=== PATIENT | female | born 1945 | race Caucasian/White ===

== ENCOUNTER 2019-08-11 15:48 | Outpatient (CLI) | payer MEDICARE, MEDICAID, SELFPAY ==
[2019-08-11 17:04] LABS: Vitamin D 25 Hydroxy 14.8 ng/mL
== END 2019-08-11 15:49 | disposition home or self-care (01) ==
PROVIDERS: PCP Internal Medicine; Visit Provider Podiatrist Foot & Ankle Surgery
DX: E55.9 Vitamin D deficiency, unspecified (principal)
CPT/HCPCS: 36415; 82306

== ENCOUNTER → 2020-01-05 12:13 | Outpatient (CLI) | payer MEDICARE, MEDICAID, SELFPAY ==
--- NOTE | ~2020-01-05 | XR_ITS ---
EXAMINATION: XR knee RT min 4V DATE: 01/05/2020 14:07 INDICATION: Right knee arthritis. TECHNIQUE: 4 views of right knee were obtained. COMPARISON: Right knee radiographs 06/01/2012 FINDINGS: Bone alignment is normal. No fracture. There is mild tricompartmental osteoarthritis. No kn ee joint effusion. IMPRESSION: 1. Mild right knee osteoarthritis. Reviewed, dictated and finalized at location A.
--- NOTE | ~2020-01-05 | MR_ITS ---
EXAMINATION: MR lumbar spine wo con DATE: 01/05/2020 13:32 INDICATION: Low back pain. TECHNIQUE: Magnetic resonance imaging (MRI) of the lumbar spine was performed without intravenous con trast. Sequences included sagittal T2-weighted FSE, sagittal T2-weighted FS FSE, sagittal T1-weighted FSE, and axial T2-weighted FSE. COMPARISON: Lumbar spine MRI 12/01/2017, thoracic spine MRI 10/23/2016 FINDINGS: There is a chronic burst fracture of L2 with changes of vertebroplasty. There is 4 mm anter olisthesis of L4 on L5. There is mildly decreased disc height at L4-L5 and severely decreased disc he ight at L5-S1. The distal spinal cord signal intensity is normal. The conus medullaris is at L1-L2. 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 The following disc levels are specifically discussed: L1-L2: The disc is mildly bulging and has an annular fissure. There is mild bilateral facet joint ost eoarthritis. There is no neural foraminal stenosis. There is no central canal stenosis. L2-L3: The disc does not extend beyond the endplate margin. There is mild bilateral facet joint osteo arthritis. There is no neural foraminal stenosis. There is no central canal stenosis. L3-L4: The disc is bulging and has an annular fissure. There is mild bilateral facet joint osteoarthr itis. There is hypertrophy of the ligamentum flavum. There is mild neural foraminal stenosis. There i s mild central canal stenosis. L4-L5: The disc is bulging and has an annular fissure. There is severe bilateral facet joint osteoart hritis. There is hypertrophy of the ligamentum flavum. There is mild bilateral neural foraminal steno sis. There is severe central canal stenosis. L5-S1: The disc is bulging and has an annular fissure. There is severe bilateral facet joint osteoart hritis. There is moderate right and mild left neural foraminal stenosis. There is mild central canal stenosis. IMPRESSION: 1. Severe lower lumbar spondylosis. Reviewed, dictated and finalized at location A.
--- NOTE | ~2020-01-05 | MR_ITS ---
EXAMINATION: MR cervical spine wo con EXAM DATE: 01/05/2020 13:12 INDICATION: Cervical pain. TECHNIQUE: Multi-sequential, multiplanar MR images of the cervical spine were obtained without contra st. Axial T2, axial T2 MERGE sequence. Sagittal T1, T2, T2 fat saturation images also obtained. Com parison is made to prior examination from 10/23/2016. FINDINGS: There is mild to moderate loss of the C6-7 disc height, mild at C4-5 and 5-6. The vertebra l bodies are aligned in the AP dimension. The spinal cord signal intensity and intrinsic morphology i s normal. Cervicomedullary junction is normal in appearance. There are no suspicious marrow signal ab normalities. Paraspinal soft tissue is unremarkable. Level by level evaluation: C2-C3: Disc does not extend beyond the endplate margin. Uncovertebral joint arthropathy: None. Facet joint arthropathy: Moderate left, mild right. Neural foraminal stenosis: No stenosis. Central canal stenosis: No stenosis. C3-C4: Disc does not extend beyond the endplate margin. Uncovertebral joint arthropathy: None. Facet joint arthropathy: Moderate to severe left, mild to moderate right. Neural foraminal stenosis: Mild left. Central canal stenosis: No stenosis. C4-C5: There is a minimal diffuse disc bulge. Uncovertebral joint arthropathy: Minimal left. Facet joint arthropathy: Moderate. Neural foraminal stenosis: Mild bilateral. Central canal stenosis: No stenosis. C5-C6: There is a mild diffuse disc bulge. Uncovertebral joint arthropathy: Mild bilateral. Facet joint arthropathy: Mild to moderate bilateral. Neural foraminal stenosis: Minimal bilateral. Central canal stenosis: Mild. C6-C7: There is a mild diffuse disc bulge. Uncovertebral joint arthropathy: Mild to moderate right, mild left. Facet joint arthropathy: Mild to moderate bilateral. Neural foraminal stenosis: Mild to moderate right, mild left. Central canal stenosis: Mild. C7-T1: Disc does not extend beyond the endplate margin. Uncovertebral joint arthropathy: None. Facet joint arthropathy: Moderate. Neural foraminal stenosis: No stenosis. Central canal stenosis: No stenosis. Compared to 2017, probable slight interval progression. IMPRESSION: 1. Overall moderate cervical facet arthropathy, mild to moderate disc disease. Reviewed, dictated and finalized at location A.
== END ==
DX: M17.10 Unilateral primary osteoarthritis, unspecified knee (principal); M47.896 Other spondylosis, lumbar region; M50.30 Other cervical disc degeneration, unspecified cervical region
CPT/HCPCS: 72141; 72148; 73564

== ENCOUNTER → 2020-01-10 13:26 | Outpatient (CLI) | payer MEDICARE, MEDICAID, SELFPAY ==
--- NOTE | ~2020-01-10 | XR_ITS ---
XR thoracic spine 3V 01/10/2020 13:55 Indication: Thoracic back pain Procedure: 3 views thoracic spine Comparison: 07/30/2016 Findings: There is mild dextrocurvature of the thoracic spine. There is a chronic compression deformi ty of the upper lumbar spine with vertebroplasty changes. There is chronic mild vertebral body height loss at T3-T11. No paraspinal soft tissue abnormality. There are calcified granulomas in the left arun ng. There is diffuse idiopathic skeletal hyperostosis (DISH) of the thoracic spine. Impression: 1: Mild thoracic spondylosis. No significant change. Reviewed, dictated and finalized at location A. Impression: 1: Mild thoracic spondylosis. No significant change.
== END ==
PROVIDERS: PCP Internal Medicine; Visit Provider Pain Medicine Pain Medicine
DX: M47.894 Other spondylosis, thoracic region (principal)
CPT/HCPCS: 72072

== ENCOUNTER → 2020-01-10 13:32 | Outpatient (CLI) | payer MEDICARE, MEDICAID, SELFPAY ==
--- NOTE | ~2020-01-10 | XR_ITS ---
EXAMINATION: XR chest 2V EXAM DATE: 01/10/2020 13:55 INDICATION: Cough. Shortness of breath, symptoms 6 months. TECHNIQUE: Frontal and lateral projections of the chest obtained and reviewed. Comparison is made to prior examination from 07/26/2018. FINDINGS: The lungs are clear. There are no pleural effusions. The cardiomediastinal silhouette is within normal limits. There is no pneumothorax suspected. Patient has diffuse idiopathic skeletal h yperostosis (DISH). IMPRESSION: No acute cardiopulmonary findings. Reviewed, dictated and finalized at location A.
== END ==
PROVIDERS: PCP Internal Medicine; Visit Provider Internal Medicine
DX: R05 Cough (principal)
CPT/HCPCS: 71046

== ENCOUNTER 2020-01-21 08:10 | Outpatient (CLI) | payer MEDICARE, MEDICAID, SELFPAY ==
--- NOTE | ~2020-01-21 | CT_ITS ---
EXAMINATION: CT brain wo con DATE: 01/21/2020 08:55 INDICATION: Head injury TECHNIQUE: Computed tomography (CT) of the head was performed without intravenous contrast. Sagittal and coronal reconstructions were performed. The mA was adjusted according to patient size. Iterative reconstruction technique was employed. The dose-length product was 605.33 mGy-cm. COMPARISON: Sinus CT dated 02/23/2012 FINDINGS: No acute intracranial hemorrhage, acute infarction or abnormal extra axial fluid collection. There is mild scattered white matter hypoattenuation consistent with chronic small vessel ischemic disease. Symmetric prominence of the sulci consistent with mild age-appropriate diffuse cerebral volume loss. Ventricles are normal and symmetric. No mass/mass effect. Changes of bilateral intraocular lens repl acement. The orbits, paranasal sinuses and mastoid air cells are normal. Hyperostosis frontalis. No c alvarial fracture. Intracranial calcified cerebral atherosclerosis is noted. IMPRESSION: 1. No fracture or acute intracranial process. 2. Age-related changes including mild diffuse volume loss and mild scattered white matter hypoattenua tion consistent with chronic small vessel ischemic disease. Reviewed, dictated and finalized at location A. IMPRESSION: 1. No fracture or acute intracranial process. 2. Age-related changes including mild diffuse volume loss and mild scattered wh ite matter hypoattenuation consistent with chronic small vessel ischemic diseas e.
== END 2020-01-21 08:11 | disposition home or self-care (01) ==
PROVIDERS: PCP Internal Medicine; Visit Provider Nurse Practitioner
DX: S09.90XA Unspecified injury of head, initial encounter (principal)
CPT/HCPCS: 70450

== ENCOUNTER 2020-04-24 12:42 | Outpatient (CLI) | payer MEDICARE, MEDICAID, SELFPAY | END 2020-04-24 12:43 | disposition home or self-care (01) | LOC: ANHBWCAUD 12:46 | PROVIDERS: PCP Internal Medicine | DX: H90.3 Sensorineural hearing loss, bilateral (principal) | CPT/HCPCS: 92557; 92567 ==

== ENCOUNTER 2020-07-26 11:30 | Outpatient (RCR) | payer MEDICAID, SELFPAY | END 2020-08-27 23:59 | disposition home or self-care (01) | LOC: ANHBWCAUD 11:30 | PROVIDERS: PCP Internal Medicine; Visit Provider Internal Medicine | DX: Z46.1 Encounter for fitting and adjustment of hearing aid (principal) | CPT/HCPCS: 99199; V5160; V5261 ==

== ENCOUNTER → 2020-08-04 08:52 | Outpatient (CLI) | payer MEDICARE, MEDICAID, SELFPAY ==
--- NOTE | ~2020-08-04 | XR_ITS ---
EXAMINATION: XR hand BI arthritis min 3V EXAM DATE: 08/04/2020 11:50 INDICATION: M19.90 - Unspecified osteoarthritis, unspecified site. Multi joint pain. TECHNIQUE: Right hand frontal, lateral and oblique projections obtained and reviewed. Left hand fron jonas, lateral and oblique projections obtained and reviewed. Catchers projection of both hands. Compar sona is made to prior examination from 06/17/2018. FINDINGS: There is mild symmetric bilateral polyarticular primary osteoarthritis without any erosive change. There are no acute fractures or dislocations identified. There is no subcutaneous gas. The soft tissue is unremarkable. There are no radiopaque foreign bodies. IMPRESSION: Mild symmetric bilateral polyarticular osteoarthritis. Reviewed, dictated and finalized at location A. ER MACHINIST
--- NOTE | ~2020-08-04 | XR_ITS ---
EXAMINATION: XR hip BI 2V w AP pelvis EXAM DATE: 08/04/2020 11:50 INDICATION: M35.00 - Sicca syndrome, unspecified . Multi joint pain. TECHNIQUE: Each hip imaged independently (separate right and also left hip) 'frog leg' and frontal p rojections for interpretation. Frontal projection pelvis. Comparison is made to prior examination fr om 12/09/2018. FINDINGS: No radiographic evidence of hip avascular necrosis. There is mild to moderate symmetric bi lateral hip primary osteoarthritis. There are no acute fractures or dislocations identified. There i s no subcutaneous gas. The soft tissue is unremarkable. Abdominal wall mesh anchors. IMPRESSION: Mild to moderate bilateral hip osteoarthritis. Reviewed, dictated and finalized at location A. OM SPRAYER
--- NOTE | ~2020-08-04 | XR_ITS ---
EXAMINATION: XR foot LT standing 2V EXAM DATE: 08/04/2020 11:50 INDICATION: M35.00 - Sicca syndrome, unspecified. Multi joint pain. TECHNIQUE: Frontal and lateral standing projections of the left foot. There is no prior study for c omparison. FINDINGS: There is moderate left 1st metatarsophalangeal joint primary osteoarthritis. There are n o bony erosions identified. There are no acute fractures or dislocations identified. There is no sub cutaneous gas. The soft tissue is unremarkable. There are no radiopaque foreign bodies. IMPRESSION: Moderate left 1st MTP osteoarthritis. Reviewed, dictated and finalized at location A. SE REFINING SUPERVISOR
--- NOTE | ~2020-08-04 | XR_ITS ---
EXAMINATION: XR foot RT standing 2V EXAM DATE: 08/04/2020 11:50 INDICATION: M35.00 - Sicca syndrome, unspecified . TECHNIQUE: Frontal and lateral standing projections of the right foot. Comparison is made to prior e xamination from 06/23/2019. FINDINGS: Previously seen right 2nd metatarsal neck fracture has healed. There is mild to moderate 1 st metatarsophalangeal joint primary osteoarthritis. There are no acute fractures or dislocations christine ntified. There is no subcutaneous gas. The soft tissue is unremarkable. 2 screws bridging healed medial malleolar fracture. There are no bony erosions identified. IMPRESSION: 1. Mild to moderate right 1st MTP osteoarthritis. 2. Other chronic, surgical findings Reviewed, dictated and finalized at location A. E CLERK
--- NOTE | ~2020-08-04 | XR_ITS ---
EXAMINATION: XR knee RT min 4V EXAM DATE: 08/04/2020 11:50 INDICATION: M35.00 - Sicca syndrome, unspecified . TECHNIQUE: Right knee frontal AP, PA, lateral, sunrise projections obtained in standing position. Co mparison is made to prior examination from 01/05/2020. FINDINGS: There is moderate to severe loss of the medial patellofemoral compartment with mild patella r lateral subluxation. No joint effusion. There is mild to moderate tibiofemoral compartment primary osteoarthritis. There are no acute fractures or dislocations identified. There is no subcutaneous ga s. The soft tissue is unremarkable. There are no radiopaque foreign bodies. Several small vascula r calcifications. IMPRESSION: 1. Right knee osteoarthritis, moderate to severe at the medial patellofemoral compartment. Reviewed, dictated and finalized at location A. AULIC SPINNER
--- NOTE | ~2020-08-04 | XR_ITS ---
EXAMINATION: XR knee LT min 4V EXAM DATE: 08/04/2020 11:50 INDICATION: M35.00 - Sicca syndrome, unspecified . Joint pain. TECHNIQUE: Left knee standing frontal AP, PA, lateral and sunrise projections. Comparison is made to prior examination from 06/01/2012. FINDINGS: There is been interval placement of total left knee arthroplasty hardware in expected posi tion. There may be a small joint effusion. There are no acute fractures identified. Some faint vascul ar calcifications. IMPRESSION: Intact left knee arthroplasty. Probable small joint effusion. Reviewed, dictated and finalized at location A. TEACHER
== END ==
PROVIDERS: PCP Internal Medicine; Visit Provider Internal Medicine
DX: M35.00 Sjogren syndrome, unspecified (principal); M17.11 Unilateral primary osteoarthritis, right knee; Z96.652 Presence of left artificial knee joint; M19.072 Primary osteoarthritis, left ankle and foot; M19.071 Primary osteoarthritis, right ankle and foot; M16.0 Bilateral primary osteoarthritis of hip; M19.042 Primary osteoarthritis, left hand; M19.041 Primary osteoarthritis, right hand
CPT/HCPCS: 73130; 73521; 73564; 73620

== ENCOUNTER 2020-08-25 17:58 | Emergency (ER) | payer MEDICARE, MEDICAID, SELFPAY ==
--- NOTE | ~2020-08-25 | XR_ITS ---
XR foot LT min 3V 08/25/2020 18:54 Indication: Stepped on nail. Evaluate for foreign body. Procedure: 4 views left foot Comparison: 08/04/2020 Findings: No radiopaque foreign body identified. Osteopenia. Moderate osteoarthritis of the first MTP joint. Lisfranc joint intact. There is a degenerative calcaneal enthesophyte. No acute fracture or t raumatic malalignment. Impression: 1: No acute bone or joint abnormality. No foreign bodies. Reviewed, dictated and finalized at location A. R TUBE MACHINE OPERATOR Impression: 1: No acute bone or joint abnormality. No foreign bodies.
[2020-08-25 18:12] VITALS: BP 152/64; PULSE 88; RESP 24; TEMP 36.9; O2SAT 97
--- NOTE | 2020-08-25 18:54 | ED.WOUNDLAC ---
HPI - Wound/Laceration General Chief Complaint: Wound/Laceration Stated Complaint: stepped on a nail Time Seen by Provider: 08/25/20 18:54 Source: patient, RN notes reviewed and old records reviewed Mode of arrival: ambulatory Limitations: no limitations History of Present Illness HPI narrative: 75 year old female who presents to express care with complaints of stepping on tack board that was lying on carpeting when she was visiting her sister 2 days ago She states that tack board has nails in it and she has puncture wounds and a lacerated area to the left forefoot. She also states that she has a splinter in her foot in the left forefoot area also that has been there for 2 weeks. Patient has superficial laceration to mid plantar forefoot, puncture pandya X2 to lateral plantar forefoot and also one puncture area to medial plantar forefoot. Also small splinter to medial forefoot. Patient states that she has been taking Tylenol for her discomfort.Tetanus is not up to date. Onset (ago): day(s) Extremity Location: Left: foot Place: other (sisters home) Patient tetanus UTD: No Context: accidental Associated symptoms: pain and suspect foreign body present Treatments prior to arrival: other (Tylenol) Related Data Home Medications Medication Instructions Recorded Confirmed clonazepam 1 mg tablet 2 mg PO DAILY tablet 04/15/19 08/25/20 nitroglycerin 0.4 mg sublingual 0.4 mg SUBLINGUAL Q5M PRN 04/15/19 08/25/20 tablet omeprazole 20 mg capsule,delayed 20 mg PO BID 04/15/19 08/25/20 release tamsulosin 0.4 mg capsule 0.4 mg PO DAILY 04/15/19 08/25/20 furosemide 40 mg tablet 20 mg PO QAM tablet 07/27/19 08/25/20 tobramycin 0.3 %-dexamethasone 0.1 1 drp OPHTHALMIC (EYE) QID 06/05/20 08/25/20 % eye drops,suspension potassium chloride 20 mEq 20 meq PO BID tablet 07/24/20 08/25/20 tablet,extended release Allergies Allergy/AdvReac Type Severity Reaction Status Date / Time alendronate sodium Allergy Mild GERDS Verified 08/25/20 18:34 doxazosin Allergy Mild NAUSEA AND Verified 08/25/20 18:34 VOMITING erythromycin base Allergy Mild NAUSEA AND Verified 08/25/20 18:34 VOMITING ibandronate sodium Allergy Mild Unknown Verified 08/25/20 18:34 doxycycline Allergy Unknown Nausea and Verified 08/25/20 18:34 Vomiting Sulfa (Sulfonamide Allergy Unknown Nausea and Verified 08/25/20 18:34 Antibiotics) Vomiting gabapentin AdvReac Nausea and Verified 08/25/20 18:34 Vomiting Vicryl Sutures Allergy Mild Rash Uncoded 08/21/20 11:45 HYDROMORPHONE HCL Allergy Unknown drug Uncoded 08/21/20 11:45 induced psychosis PROCHLORPERAZINE EDISYLATE Allergy Unknown TARTIVE Uncoded 08/21/20 11:45 DYSKINESIA PROCHLORPERAZINE MALEATE Allergy Unknown Unknown Uncoded 08/21/20 11:45 Review of Systems Review of Systems: Narrative: CONSTITUTIONAL: Denies fever, chills, or sweats. EYES: Denies visual changes, redness, or discharge. ENT: Denies rhinorrhea, congestion, sore throat, or otalgia. CARDIOVASCULAR: Denies chest pain, palpitations, or edema. RESPIRATORY: Denies cough or dyspnea. GASTROINTESTINAL: Denies abdominal pain, nausea, vomiting, or diarrhea. GENITOURINARY: Denies dysuria or hematuria. SKIN: Denies rash or itching.superficial laceration left forefoot, puncture pandya to left outer and inner forefoot plantar region, splinter noted to inner plantar forefoot MUSCULOSKELETAL: Denies back pain, positive for foot pain plantar aspect left, or myalgia. NEUROLOGIC: Denies headache, numbness, or weakness. PSYCHIATRIC: Positive for history of anxiety or depression. All systems reviewed & are unremarkable except as noted in HPI and below PMFSH Past Medical History Medical History Allergies Anemia Ankle fracture, right Anxiety Arthritis Asthma Carpal tunnel syndrome CHF (congestive heart failure) COPD (chronic obstructive pulmonary disease) Depression Diabetes Gallbladder di
[2020-08-25] MEDS: TETANUS,DIPHTHERIA,AC PERTUSSIS ADULT (0.5 ML) BOOSTRIX IM (19:23)
== END 2020-08-25 19:40 | disposition home or self-care (01) ==
PROVIDERS: Emergency Provider Registered Nurse; PCP Internal Medicine
DX: S91.332A Puncture wound without foreign body, left foot, initial encounter (principal); S91.312A Laceration without foreign body, left foot, initial encounter; W29.4XXA Contact with nail gun, initial encounter; S91.342A Puncture wound with foreign body, left foot, initial encounter; W45.8XXA Other foreign body or object entering through skin, initial encounter; Z23 Encounter for immunization; Z87.891 Personal history of nicotine dependence; M19.90 Unspecified osteoarthritis, unspecified site; I11.0 Hypertensive heart disease with heart failure; I50.9 Heart failure, unspecified; J44.9 Chronic obstructive pulmonary disease, unspecified; F32.9 Major depressive disorder, single episode, unspecified; E11.9 Type 2 diabetes mellitus without complications; K21.9 Gastro-esophageal reflux disease without esophagitis; H40.9 Unspecified glaucoma; I25.2 Old myocardial infarction; M81.0 Age-related osteoporosis without current pathological fracture; F41.9 Anxiety disorder, unspecified
CPT/HCPCS: 73630; 90471; 90715; 99213; G0463

== ENCOUNTER 2020-08-27 10:03 | Outpatient (CLI) | payer MEDICARE, MEDICAID, SELFPAY ==
--- NOTE | ~2020-08-27 | XR_ITS ---
EXAMINATION: XR barium swallow modified EXAM DATE: 08/27/2020 10:33 INDICATION: R13.10 - Dysphagia, unspecified. TECHNIQUE: Modified barium esophagram was performed by myself to administered fluoroscopy, in conjun ction with speech pathologist who administered barium in varying consistencies as per speech patholog ist documentation. This was recorded on tape. The DAP for this procedure was 1.2 Gycm2. FINDINGS: Oral stage: Adequate function. Pharyngeal phase: Adequate function. Laryngeal penetration: None. Aspiration: None. Laryngeal sensitivity: Present. IMPRESSION: Normal modified esophagram exam. Please refer to speech pathologist findings and specifi c feeding recommendations. Reviewed, dictated and finalized at location A. IMPRESSION: Normal modified esophagram exam. Please refer to speech pathologis t findings and specific feeding recommendations.
--- NOTE | 2020-08-27 12:22 | STOPEVAL ---
MODIFIED BARIUM SWALLOW EVALUATION: Thank you for referring Mili Pedroza to [facility].? Attending Provider: Chad Lou DO fax: [phone] Past Medical History Source of Past Medical History Patient Cardiovascular History Hx Cardiac Catheterization Yes: stents x2 Hx Congestive Heart Failure Yes Hx Coronary Artery Disease Yes Hx Coronary Stent Yes Hx Hypercholesterolemia Yes Hx Hypertension Yes Hx Myocardial Infarction Yes Respiratory History Hx Chronic Obstructive Pulmonary Disease Yes (COPD) Gastrointestinal History Hx Bowel Surgery Yes: colon resection Genitourinary History Hx Bladder Surgery Yes Musculoskeletal History Hx Orthopedic Surgery Yes: right ankle Hx Osteoporosis Yes Endocrine History Hx Diabetes Yes Reproductive History Hx Hysterectomy Yes Pain Assessment Timing of Pain Assessment Timing of Pain Assessment Assessment Self Report Self Report Pain Level 0 Pain Score Pain Score 0: Self Report Modified Barium Swallow Evaluation Recent Swallowing History Reports Dysphagia Yes: choking and feeling of having something in her throat Onset of Dysphagia 6-8 months ago History of Dysphagia No History of Pneumonia No Reported Difficult Consistencies Solids Intake Method Prior to Swallow Oral Evaluation Diet Prior to Swallow Evaluation Regular, Level 7 Liquid Consistency Prior to Swallow Thin (0) Evaluation Dentition Comments missing teeth; edentulous Consistency Thin Uncontrolled 2 Method of Presentation Straw Oral Preparatory Symptoms None Oral Phase Symptoms None Pharyngeal Phase Symptoms None Severity of Vallecular Residue None - 0% No Residue Severity of Pyriform Sinus Residue None - 0% No Residue 8 Point Laryngeal Penetration-Aspiration Material Does Not Enter Airway Scale Cervical/Esophageal Symptoms None Thin Uncontrolled 1 Method of Presentation Cup Oral Preparatory Symptoms None Oral Phase Symptoms None Pharyngeal Phase Symptoms None Severity of Vallecular Residue None - 0% No Residue Severity of Pyriform Sinus Residue None - 0% No Residue 8 Point Laryngeal Penetration-Aspiration Material Does Not Enter Airway Scale Cervical/Esophageal Symptoms None Solid Consistency Method of Presentation Spoon Oral Preparatory Symptoms Within Functional Limits Oral Preparatory Phase Comments slightly slow mastication but related to being edentulous Oral Phase Symptoms Within Functional Limits Pharyngeal Phase Symptoms None Severity of
== END 2020-08-27 10:04 | disposition home or self-care (01) ==
PROVIDERS: PCP Internal Medicine; Visit Provider Internal Medicine
DX: R13.10 Dysphagia, unspecified (principal)
CPT/HCPCS: 92611

== ENCOUNTER 2020-10-18 10:16 | Outpatient (CLI) | payer MEDICARE, MEDICAID, SELFPAY ==
--- NOTE | ~2020-10-18 | MM_ITS ---
EXAMINATION: MM screening melia BI w bart HISTORY: Screening TECHNIQUE: Craniocaudal and mediolateral oblique 3-D tomosynthesis images were obtained and synthetic 2-D images were generated. CAD analysis was submitted and interpreted. COMPARISON: Comparison to multiple prior studies sequentially, with oldest reviewed study dated 02/07. BREAST PARENCHYMAL COMPOSITION: There are scattered areas of fibroglandular density. FINDINGS: There is no evidence of suspicious mass, calcification, or architectural distortion to sugg est malignancy in either breast. There has been no suspicious interval change. IMPRESSION: 1. No mammographic evidence of malignancy. 2. Recommend routine screening mammography in one year. BI-RADS Category 1: Negative Reviewed, dictated and finalized at location A.
== END 2020-10-18 10:17 | disposition home or self-care (01) ==
PROVIDERS: PCP Internal Medicine; Visit Provider Internal Medicine
DX: Z12.31 Encounter for screening mammogram for malignant neoplasm of breast (principal)
CPT/HCPCS: 77063; 77067

== ENCOUNTER 2020-11-25 11:32 | Emergency (ER) | payer MEDICARE, SELFPAY ==
[2020-11-25 11:40] VITALS: BP 109/89; PULSE 72; RESP 18; TEMP 37.3; O2SAT 96
--- NOTE | 2020-11-25 11:45 | ED.URI ---
HPI - URI/Sore Throat General Chief Complaint: Upper Respiratory Infection Stated Complaint: headache,sinus prob,abd pain Time Seen by Provider: 11/25/20 11:37 Source: patient and family (Twin sister) Mode of arrival: ambulatory (Uses a cane) Limitations: no limitations History of Present Illness HPI Narrative: 75-year-old female presents to the [facility] with complaints of frontal headache, sinus congestion that keeps getting worse for the last 2 weeks. Has tried [id number] products such as Sudafed and cold and sinus products which are not helping. She says the pressure just keeps getting worse and it is hard to breathe out of her nose. Has had a runny nose alternating with sinus congestion. Patient does have a significant past medical history to include but not limited to IBS, diabetes, congestive heart failure, COPD. Related Data Home Medications Medication Instructions Recorded Confirmed clonazepam 1 mg tablet 2 mg PO DAILY tablet 04/15/19 11/25/20 nitroglycerin 0.4 mg sublingual 0.4 mg SUBLINGUAL Q5M PRN 04/15/19 11/25/20 tablet omeprazole 20 mg capsule,delayed 20 mg PO BID 04/15/19 11/25/20 release tamsulosin 0.4 mg capsule 0.4 mg PO DAILY 04/15/19 11/25/20 furosemide 40 mg tablet 20 mg PO QAM tablet 07/27/19 11/25/20 tobramycin 0.3 %-dexamethasone 0.1 1 drp OPHTHALMIC (EYE) QID 06/05/20 11/25/20 % eye drops,suspension potassium chloride 20 mEq 20 meq PO BID tablet 07/24/20 11/25/20 tablet,extended release ondansetron HCl 4 mg tablet 4 mg PO Q8H 11/22/20 11/25/20 Allergies Allergy/AdvReac Type Severity Reaction Status Date / Time alendronate sodium Allergy Mild GERDS Verified 11/25/20 11:45 doxazosin Allergy Mild NAUSEA AND Verified 11/25/20 11:45 VOMITING erythromycin base Allergy Mild NAUSEA AND Verified 11/25/20 11:45 VOMITING ibandronate sodium Allergy Mild Unknown Verified 11/25/20 11:45 doxycycline Allergy Unknown Nausea and Verified 11/25/20 11:45 Vomiting Sulfa (Sulfonamide Allergy Unknown Nausea and Verified 11/25/20 11:45 Antibiotics) Vomiting gabapentin AdvReac Nausea and Verified 11/25/20 11:45 Vomiting Vicryl Sutures Allergy Mild Rash Uncoded 11/25/20 11:45 HYDROMORPHONE HCL Allergy Unknown drug Uncoded 11/25/20 11:45 induced psychosis PROCHLORPERAZINE EDISYLATE Allergy Unknown TARTIVE Uncoded 11/25/20 11:45 DYSKINESIA PROCHLORPERAZINE MALEATE Allergy Unknown Unknown Uncoded 11/22/20 13:00 Review of Systems Review of Systems: All systems reviewed & are unremarkable except as noted in HPI and below Constitutional: Constitutional: Reports no additional constitutional complaints, Denies chills, Denies fatigue, Denies fever(s) and Denies weakness Eyes: Eyes: Reports no additional eye complaints ENT: Reports as per HPI, Reports nasal congestion and Denies sore throat Comments: Sinus congestion, sinus headache Cardiovascular: Cardiovascular: Reports no additional cardiovascular complaints and Denies chest pain Respiratory: Respiratory: Reports no additional respiratory complaints, Denies cough, Denies dyspnea and Denies wheezing Gastrointestinal: Gastrointestinal: Reports as per HPI, Reports abdominal pain (States it is chronic due to IBS), Denies diarrhea, Denies nausea and Denies vomiting Comments: Patient states that she has chronic abdominal pain due to IBS Genitourinary: Genitourinary: Reports no additional female genitourinary complaints Musculoskeletal: Musculoskeletal: Reports no additional musculoskeletal complaints and Denies back pain Integumentary/Breasts: Skin/Breast: Reports system reviewed and no additional complaints, except as docu and Denies rash Neurologic: Reports system reviewed and no additional complaints, except as documented Psychiatric: Psychiatric: Reports no additional psychiatric complaints Endocrine: Endocrine: Reports no additional endocrine complaints Allergic/Immunologic: Allergic/Immunologic: Reports no
[2020-11-25 12:14] LABS: Glucose Point of Care 107 mg/dl (65-105)
== END 2020-11-25 12:17 | disposition home or self-care (01) ==
PROVIDERS: Emergency Provider Nurse Practitioner; PCP Internal Medicine
DX: J01.40 Acute pansinusitis, unspecified (principal); Z87.891 Personal history of nicotine dependence; Z96.659 Presence of unspecified artificial knee joint; M19.90 Unspecified osteoarthritis, unspecified site; J44.9 Chronic obstructive pulmonary disease, unspecified; K21.9 Gastro-esophageal reflux disease without esophagitis; E11.39 Type 2 diabetes mellitus with other diabetic ophthalmic complication; H42 Glaucoma in diseases classified elsewhere; H40.9 Unspecified glaucoma; I11.0 Hypertensive heart disease with heart failure; I50.9 Heart failure, unspecified; I25.2 Old myocardial infarction; M81.0 Age-related osteoporosis without current pathological fracture; M35.00 Sjogren syndrome, unspecified; Z95.5 Presence of coronary angioplasty implant and graft
CPT/HCPCS: 82948; 99213; G0463

== ENCOUNTER 2020-12-01 09:23 | Outpatient (CLI) | payer MEDICARE, SELFPAY ==
--- NOTE | ~2020-12-01 | MR_ITS ---
EXAMINATION: MR wrist RT wo con DATE: 12/01/2020 10:08 INDICATION: Right hand pain and dorsal mass TECHNIQUE: Magnetic resonance imaging (MRI) of the right wrist was performed without intravenous cont rast. Sequences performed include axial PD-weighted FSE and PD-weighted FS FSE, coronal PD-weighted F S FSE and T1-weighted SE, and sagittal PD-weighted FS FSE and PD-weighted FSE. COMPARISON: None FINDINGS: Intrinsic ligaments: The scapholunate and lunotriquetral ligaments are normal. Triangular fibrocartilage complex (TFCC): There is thickening and mild amorphous increased signal within the central fibrocartilaginous disc of the triangular fibrocartilage complex consistent with partial tear. The ulnar styloid, foveal and ra dial attachments, the dorsal and volar radioulnar ligaments, ulnar collateral ligament, ulnotriquetra l ligament and meniscal homologue are normal. The extensor carpi ulnaris tendon sheath is normal. Extensor wrist: Mild tenosynovitis with mild increased fluid signal surrounding the tendons in the second and fourth dorsal compartments. Tendinopathy of the the extensor digitorum longus tendon to the second digit wit h longitudinal split tear containing a n11 x 10 x 5 mm intrasubstance ganglion cyst which is located at the level of the distal carpal row and likely accounts for the mass of concern. There is increased signal within the remaining extensor digitorum longus tendons more proximally at the level of the wr ist joint where the tendons begin to curve towards the ulnar side and would favor magic angle artifac t over tendinopathy. Additional mild tendinopathy and longitudinal split tearing of the extensor carp i ulnaris tendon at the level of the carpus. Flexor wrist: The flexor tendons of the wrist are normal. No abnormality in the carpal tunnel with normal median n erve. Guyon's canal: Guyon's canal including the ulnar nerve and artery are normal. Bones/other: Bone alignment is normal. No fracture. There is polyarticular osteoarthritis, mild at the wrist, midc arpal and first carpal metacarpal joints and moderate at the triscaphe joint with subarticular cystic change and subarticular edema at both sides of the joint space. There are couple additional small ga nglion cysts at the volar aspect of the radial side of the wrist which appear to arise from the radio carpal joint. IMPRESSIO 1. Tendinopathy, longitudinal split tear and intrasubstance ganglion cyst within the digito rum longus tendon to the right second digit. 2. Mild tenosynovitis in the second and fourth dorsal compartments. 3. Mild tendinopathy and longitudinal split tearing of the extensor carpi ulnaris tendon. 4. Polyarticular osteoarthritis, moderate severity at the triscaphe joint and mild at the wrist, midc arpal and first carpal metacarpal joints. 5. Mild partial tear at the central fiber cartilaginous disc of the triangular fibrocartilage complex . Reviewed, dictated and finalized at location A.
== END 2020-12-01 09:24 | disposition home or self-care (01) ==
PROVIDERS: PCP Internal Medicine; Visit Provider Orthopaedic Surgery
DX: M79.641 Pain in right hand (principal); R22.31 Localized swelling, mass and lump, right upper limb; M67.441 Ganglion, right hand; S66.314A Strain of extensor muscle, fascia and tendon of right ring finger at wrist and hand level, initial encounter; M65.841 Other synovitis and tenosynovitis, right hand; S66.811A Strain of other specified muscles, fascia and tendons at wrist and hand level, right hand, initial encounter; M19.041 Primary osteoarthritis, right hand; S63.618A Unspecified sprain of other finger, initial encounter
CPT/HCPCS: 73221

== ENCOUNTER 2021-01-25 09:08 | Outpatient (CLI) | payer MEDICARE, MEDICAID, SELFPAY ==
--- NOTE | 2021-01-25 09:00 | ECG_ITS ---
Measurements Intervals [place] Rate: 67 P: 46 WY: 195 QRS: -13 QRSD: 95 T: -12 QT: 398 QTc: 423 Interpretive Statements SINUS RHYTHM CONSIDER INFERIOR INFARCT, AGE INDETERMINATE BASELINE ARTIFACT- II, III, AVF ABNORMAL ECG Electronically Signed On 01-25-2021 9:37:43 CDT by Shekhar Spann D.O.
[2021-01-25 10:03] LABS: Anion Gap 6 mmol/L (8-16); Blood Urea Nitrogen 23 mg/dL (7-17); Calcium 9.1 mg/dL (8.4-10.2); Carbon Dioxide 25 mmol/L (22-30); Chloride 106 mmol/L (98-107); Estimated Glomerular Filt Rate 48; Glucose 102 mg/dL (65-110); Potassium 4.3 mmol/L (3.4-5.0); Sodium 137 mmol/L (137-145)
== END 2021-01-25 09:09 | disposition home or self-care (01) ==
LOC: ANHSURGERY 09:10
PROVIDERS: Anesthesiology; PCP Internal Medicine; Visit Provider Orthopaedic Surgery
DX: E11.42 Type 2 diabetes mellitus with diabetic polyneuropathy (principal); I10 Essential (primary) hypertension; Z01.818 Encounter for other preprocedural examination; R94.31 Abnormal electrocardiogram [ECG] [EKG]
CPT/HCPCS: 36415; 80048; 93005

== ENCOUNTER 2021-01-28 02:50 | Day surgery (SDC) | payer MEDICARE, MEDICAID, SELFPAY ==
[2021-01-23 09:48] VITALS: BMI 34.3
[2021-01-28 06:44] VITALS: BP 127/67; PULSE 71; RESP 18; TEMP 36.3; O2SAT 96
[2021-01-28] MEDS: LACTATED RINGERS 1,000 ML 30 ML IV CONT (06:58)
[2021-01-28] MEDS: ACETAMINOPHEN 500 MG TABLET 1000 MG PO (07:01)
[2021-01-28] MEDS: KETOROLAC 15 MG/ML VIAL (*BKC) IV PUSH (07:02)
--- NOTE | 2021-01-28 07:09 | WPDANESEPPF ---
Anes - Initial Pre Proc Eval Procedure: Operation Date: 01/28/21 07:30 Proposed Procedures p Excision Ganglion Right Hand - Medhat Arreola MD Date/Time: 01/28/21 07:09 Surgeon: Medhat Arreola MD Pre Op Diagnosis: right hand extensor tendon ganglion Patient Data Age: 75 Gender: F Height: 1.63 m Weight: 90.75 kg Allergies Allergy/AdvReac Type Severity Reaction Status Date / Time alendronate sodium Allergy Mild GERDS Verified 01/28/21 06:51 doxazosin Allergy Mild NAUSEA AND Verified 01/28/21 06:51 VOMITING erythromycin base Allergy Mild NAUSEA AND Verified 01/28/21 06:51 VOMITING ibandronate sodium Allergy Mild Unknown Verified 01/28/21 06:51 doxycycline Allergy Unknown Nausea and Verified 01/28/21 06:51 Vomiting Sulfa (Sulfonamide Allergy Unknown Nausea and Verified 01/28/21 06:51 Antibiotics) Vomiting gabapentin AdvReac Nausea and Verified 01/28/21 06:51 Vomiting Vicryl Sutures Allergy Mild Rash Uncoded 01/28/21 06:51 HYDROMORPHONE HCL Allergy Unknown drug Uncoded 01/28/21 06:51 induced psychosis PROCHLORPERAZINE EDISYLATE Allergy Unknown TARTIVE Uncoded 01/28/21 06:51 DYSKINESIA PROCHLORPERAZINE MALEATE Allergy Unknown Unknown Uncoded 01/28/21 06:51 Home Medications Medication Instructions Recorded Confirmed Type clonazepam 1 mg tablet 1 mg PO BID tablet 04/15/19 01/28/21 History nitroglycerin 0.4 mg sublingual 0.4 mg SUBLINGUAL Q5M PRN 04/15/19 01/28/21 History tablet omeprazole 20 mg capsule,delayed 20 mg PO BID 04/15/19 01/28/21 History release tamsulosin 0.4 mg capsule 0.4 mg PO DAILY 04/15/19 01/28/21 History magnesium oxide 800 mg PO BID #90 tablet 07/13/19 01/28/21 Rx furosemide 40 mg tablet 20 mg PO BID tablet 07/27/19 01/28/21 History alcohol swabs 1 pad TOPICAL TID #100 each 10/21/19 01/28/21 Rx blood-glucose meter #1 each 10/21/19 01/28/21 Rx sennosides 8.6 mg-docusate sodium See Rx Instructions .ROUTE 07/09/20 08/16/21 Rx 50 mg tablet .COMPLEX #90 tablet albuterol sulfate 90 mcg/actuation 1 puff INHALATION Q4H PRN #8 gm 02/06/20 01/28/21 Rx aerosol inhaler tobramycin 0.3 %-dexamethasone 0.1 1 drp OPHTHALMIC (EYE) QID 06/05/20 01/28/21 History % eye drops,suspension betamethasone, augmented 0.05 % See Rx Instructions .ROUTE 06/11/20 01/28/21 Rx topical cream .COMPLEX #50 g losartan 100 mg tablet See Rx Instructions .ROUTE 06/11/20 01/28/21 Rx .COMPLEX #90 each aspirin 81 mg tablet,delayed 81 mg PO DAILY #90 tablet 06/27/20 01/28/21 Rx release carvedilol 12.5 mg tablet See Rx Instructions .ROUTE 06/27/20 01/28/21 Rx .COMPLEX #180 each raloxifene 60 mg tablet 60 mg PO DAILY #90 tablet 06/27/20 01/28/21 Rx dicyclomine 20 mg tablet See Rx Instructions .ROUTE 07/16/20 01/28/21 Rx .COMPLEX #90 each escitalopram oxalate 10 mg tablet 15 mg PO DAILY #60 tablet 07/24/20 01/28/21 Rx potassium chloride 20 mEq 20 meq PO BID tablet 07/24/20 01/28/21 History tablet,extended release tizanidine 4 mg tablet See Rx Instructions .ROUTE 08/06/20 01/28/21 Rx .COMPLEX #360 each atorvastatin 80 mg tablet See Rx Instructions .ROUTE 08/24/20 01/28/21 Rx .COMPLEX #90 each famotidine 20 mg tablet See Rx Instructions .ROUTE 08/24/20 01/28/21 Rx .COMPLEX #90 each hydroxychloroquine 200 mg tablet 200 mg PO DAILY #30 tablet 08/28/20 01/28/21 Rx umeclidinium 62.5 mcg-vilanterol See Rx Instructions .ROUTE 09/13/20 01/28/21 Rx 25 mcg/actuation powdr for .COMPLEX #60 ea inhalation sitagliptin 25 mg tablet See Rx Instructions .ROUTE 10/15/20 01/28/21 Rx .COMPLEX #90 tablet ondansetron 4 mg disintegrating 4 mg PO Q8H PRN #30 tablet 11/30/20 01/28/21 Rx tablet blood sugar diagnostic #100 each 01/21/21 01/28/21 Rx lancets #100 each 01/22/21 01/28/21 Rx duloxetine 60 mg PO DAILY 01/23/21 01/28/21 History albuterol sulfate 2.5 mg INHALATION Q4-6H PRN #180 ml 01/25/21 01/28/21 Rx Patient hx anesthesia problems: none Family hx ane
--- NOTE | 2021-01-28 07:11 | WPDHPUPDATE1 ---
History and Physical Update Update Date/Time: 01/28/21 07:11 History and Physical has been reviewed, including an updated exam of the patient. There are NO changes in the patient's condition. Risks, benefits, and alternatives have been discussed and questions answered. Patient agrees to proceed with procedure.
[2021-01-28 07:17] LABS: Glucose Point of Care 111 mg/dl (65-105)
[2021-01-28] MEDS: ceFAZolin 2 GM/D5W 50 ML 2 GM/50 ML BAG IVPB (07:24)
[2021-01-28] MEDS: BUPIVACAINE/EPINEPHRINE 0.5% 10 ML VIAL 30 ML INFILTRATE (07:52)
[2021-01-28 08:06] VITALS: BP 130/43; PULSE 72; RESP 16; O2SAT 96
[2021-01-28 08:15] LABS: Glucose Point of Care 98 mg/dl (65-105)
--- NOTE | 2021-01-28 08:22 | W.PM.PROC2 ---
Procedure Note - Detailed Date of Procedure 01/28/21 Pre-op Diagnosis right hand extensor tendon ganglion Post-op Diagnosis same Procedure Performed Excision ganglion right hand Surgeon Medhat Arreola MD Allergist/Immunologist Physician Dee Dee Mcpherson Anesthesia MAC and local Indications See H&P Description of Procedure The patient was identified and proper site identified. She was taken to the operating room and transferred to the or table placing her supine to pad her torso and extremities. Nonsterile tourniquet was placed high in the right arm. Right upper extremity was prepped and draped in usual sterile fashion. She was administered IV sedation. Several cc of 0.5% Marcaine and epinephrine solution was infiltrated into the subcutaneous tissue over the ganglion. The extremity was exsanguinated and the tourniquet inflated to 200 mmHg meaning up for approximately 18 minutes. Longitudinal incision was made over the extensor tendons. Subcutaneous tissue was bluntly dissected protecting neurovascular structures. The ganglion was easily identified within the EIP tendon. A tenotomy was performed which would allow for evacuation of the fluid and then the tendon was repaired by folding into itself and securing it with three 0 Ethibond suture giving a douglas repair. The wound was irrigated with sterile saline. Skin edges reapproximated with three 0 Prolene subcuticular stitch and Steri-Strips applied. Sterile dressing was applied. Tourniquet was released. She tolerated the procedure well and was taken back to recovery area on a cart in stable condition. There were no known intraoperative complications. Estimated blood loss negligible. She received perioperative antibiotics per Estimated Blood Loss 1 Tourniquet Time 18 Drains No Packing No Pathology none sent Complications No immediate complications Condition stable Disposition PACU
[2021-01-28 08:35] VITALS: BP 125/61; PULSE 67
== END 2021-01-28 09:03 | disposition home or self-care (01) ==
PROVIDERS: PCP Internal Medicine; Visit Provider Orthopaedic Surgery
PROC: (CPT 26160; principal; 2021-01-28 07:30)
DX: M67.441 Ganglion, right hand (principal); D64.9 Anemia, unspecified; F41.9 Anxiety disorder, unspecified; M19.90 Unspecified osteoarthritis, unspecified site; J45.909 Unspecified asthma, uncomplicated; I11.9 Hypertensive heart disease without heart failure; I50.9 Heart failure, unspecified; J44.9 Chronic obstructive pulmonary disease, unspecified; F41.8 Other specified anxiety disorders; K21.9 Gastro-esophageal reflux disease without esophagitis; E11.9 Type 2 diabetes mellitus without complications; K82.9 Disease of gallbladder, unspecified; K58.9 Irritable bowel syndrome, unspecified; I25.2 Old myocardial infarction; M81.0 Age-related osteoporosis without current pathological fracture; M35.00 Sjogren syndrome, unspecified; Z87.891 Personal history of nicotine dependence; Z79.82 Long term (current) use of aspirin; Z79.51 Long term (current) use of inhaled steroids; E66.9 Obesity, unspecified; Z68.35 Body mass index [BMI] 35.0-35.9, adult
CPT/HCPCS: 26160; 36415; 80048; 82948; 93005; A9270; J0690; J1885; J2704; J7120

== ENCOUNTER 2021-03-08 13:31 | Outpatient (CLI) | payer MEDICARE, MEDICAID, SELFPAY ==
--- NOTE | ~2021-03-08 | MR_ITS ---
EXAMINATION: MR wrist RT wo con DATE: 03/08/2021 15:06 INDICATION: Right wrist pain TECHNIQUE: Magnetic resonance imaging (MRI) of the right wrist was performed without intravenous cont rast. Sequences performed include axial PD-weighted FSE and PD-weighted FS FSE, coronal PD-weighted F S FSE and T1-weighted SE, and sagittal PD-weighted FS FSE and PD-weighted FSE. COMPARISON: 01/31/2021 FINDINGS: Intrinsic ligaments: The lunotriquetral ligament is normal. There is mild increased signal of less than fluid intensity at the dorsal component of the scapholunate ligament suspicious for partial tear. Triangular fibrocartilage complex (TFCC): Again seen is mild increased signal in the central fibrocartilaginous disc of the triangular fibrocar tilage complex. The foveal and styloid attachments as well as the dorsal and volar radioulnar ligamen ts are normal. The ulnar collateral ligament, ulnotriquetral ligament and meniscal homologue are norm al. The extensor carpi ulnaris tendon sheath is normal. Extensor wrist: There is residual mild fusiform thickening and increased signal of less than fluid intensity in the s econd digit extensor digitorum longus tendon overlying the capitate at the site of a prior intrasubst ance ganglion cyst which is reported been resected with the increased signal consistent with residual tendinopathy. There is persistent small amount of fluid surrounding the tendons in the second and fo urth dorsal compartments. At the fourth dorsal compartment the fluid collection measures approximatel y 2.5 cm proximal to distal, 1.4 cm medial to lateral and up to 2.5 mm in maximal thickness. Again se en is increased signal in the extensor digitorum longus tendons at the level of the distal radius. Th is previously was felt to likely represent magic angle artifact. It would however be unusual for meta static angle artifact to some precisely colocalized on 2 independent studies. In addition there is no increased signal in the underlying extensor indices tendon which is aligned along the same axis. Fin ally there appears to be thickening of the tendons relative to their diameter with a pass beneath the thickened extensor retinaculum. All these reasons is more likely that this represents tendinopathy. Again seen is mild tendinopathy and longitudinal split tearing of the extensor carpi ulnaris tendon a t the level of the carpus. Flexor wrist: The flexor tendons of the wrist are normal. No abnormality in the carpal tunnel with normal median n erve. Guyon's canal: Guyon's canal including the ulnar nerve and artery are normal. Bones/other: Bone alignment is normal. No fracture or pathologic marrow replacing process. Polyarticular osteoarth ritis, mild at the wrist, midcarpal and first carpal metacarpal joints and moderate at the triscaphe joint with subarticular cystic change and subarticular edema at both sides of the joint space. Unchan ged small ganglion cyst at the volar aspect of the radial aspect of the wrist arising from the radioc arpal articulation. IMPRESSION: 1. Mild residual tendinopathy/scarring along the extensor digitorum longus tendon to the second digit post resection of a previously seen ganglion cyst. 2. Persistent tenosynovitis in the fourth dorsal compartment with fusiform thickening and increased s ignal of the extensor digitorum longus tendons proximal to the their passage beneath the thickened ex tensor retinaculum which suggests tendinopathy potentially in the setting of stenosing tenosynovitis. 3. Unchanged mild tenosynovitis in the second dorsal compartment. 4. Tendinopathy and longitudinal split tearing of the extensor carpi ulnaris tendon. 5. Likely partial tear at the dorsal component of the scapholunate ligament. 6. Mild partial tear of the central fibrocartilaginous disc of the triangular fibrocartilage complex. 7. Polyarticular osteoarthritis
== END 2021-03-08 13:32 | disposition home or self-care (01) ==
PROVIDERS: PCP Internal Medicine; Visit Provider Nurse Practitioner Adult Health
DX: M25.531 Pain in right wrist (principal); M67.833 Other specified disorders of tendon, right wrist; M65.88 Other synovitis and tenosynovitis, other site; S66.811A Strain of other specified muscles, fascia and tendons at wrist and hand level, right hand, initial encounter; M19.031 Primary osteoarthritis, right wrist
CPT/HCPCS: 73221

== ENCOUNTER 2021-03-15 08:00 | Outpatient (RCR) | payer MEDICARE, MEDICAID, SELFPAY | END 2021-04-08 23:59 | disposition home or self-care (01) | LOC: ANHBWCAUD 08:00 | PROVIDERS: PCP Internal Medicine; Visit Provider Internal Medicine | DX: Z46.1 Encounter for fitting and adjustment of hearing aid (principal) | CPT/HCPCS: 99199 ==

== ENCOUNTER 2021-06-27 09:43 | Emergency (ER) | payer MEDICARE, MEDICAID, SELFPAY ==
[2021-06-27 09:52] VITALS: BP 116/66; PULSE 116; RESP 20; TEMP 36.4; O2SAT 99
--- NOTE | 2021-06-27 10:26 | ED.URI ---
HPI - URI/Sore Throat General Chief Complaint: Upper Respiratory Infection Stated Complaint: Swollen gums, sinur pressure Source: patient Mode of arrival: ambulatory Limitations: no limitations History of Present Illness HPI Narrative: 76-year-old female presents to [facility] with complaints of sinus pressure, right-sided and nasal congestion for the past 10 days. Patient reports that she then started with right upper gum pain for the past 3 days. Patient reports that she is needing false teeth placed. Patient denies fever, bodies, chills, nausea, vomiting or diarrhea. Able to tolerate fluids by mouth: Yes Exacerbating factors: nothing Related Data Home Medications Medication Instructions Recorded Confirmed clonazepam 1 mg tablet 1 mg PO BID tablet 04/15/19 06/27/21 nitroglycerin 0.4 mg sublingual 0.4 mg SUBLINGUAL Q5M PRN 04/15/19 06/27/21 tablet omeprazole 20 mg capsule,delayed 20 mg PO BID 04/15/19 06/27/21 release tamsulosin 0.4 mg capsule 0.4 mg PO DAILY 04/15/19 06/27/21 furosemide 40 mg tablet 20 mg PO BID tablet 07/27/19 06/27/21 tobramycin 0.3 %-dexamethasone 0.1 1 drp OPHTHALMIC (EYE) QID 06/05/20 06/27/21 % eye drops,suspension potassium chloride 20 mEq 20 meq PO BID tablet 07/24/20 06/27/21 tablet,extended release duloxetine 60 mg PO DAILY 01/23/21 06/27/21 atorvastatin 80 mg PO DAILY 06/27/21 06/27/21 carvedilol 12.5 mg PO BID 06/27/21 06/27/21 Allergies Allergy/AdvReac Type Severity Reaction Status Date / Time ibandronate sodium Allergy Mild Unknown Verified 06/27/21 10:18 hydromorphone Allergy Unknown drug Verified 06/27/21 10:18 induced psychosis prochlorperazine Allergy Unknown tardive Verified 06/27/21 10:18 dyskinesia Sulfa (Sulfonamide Allergy Unknown Nausea and Verified 06/27/21 10:18 Antibiotics) Vomiting alendronate sodium AdvReac Mild GERDS Verified 06/27/21 10:18 doxazosin AdvReac Mild NAUSEA AND Verified 06/27/21 10:18 VOMITING erythromycin base AdvReac Mild NAUSEA AND Verified 06/27/21 10:18 VOMITING doxycycline AdvReac Unknown Nausea and Verified 06/27/21 10:18 Vomiting gabapentin AdvReac Nausea and Verified 06/27/21 10:18 Vomiting Vicryl Sutures Allergy Mild Rash Uncoded 06/27/21 10:18 Review of Systems Constitutional: Constitutional: Denies chills, Denies fatigue, Denies fever(s) and Denies weakness ENT: Denies epistaxis and Denies sore throat Comments: Sinus pressure, nasal congestion, right upper gum pain Cardiovascular: Cardiovascular: Denies chest pain, Denies rapid heart rate, Denies radiating jaw, neck or arm pain and Denies slow heart rate Gastrointestinal: Gastrointestinal: Denies abdominal pain, Denies constipation, Denies diarrhea, Denies nausea and Denies vomiting Integumentary/Breasts: Skin/Breast: Denies rash PMFSH Past Medical History Medical History Allergies Anemia Ankle fracture, right Anxiety Arthritis Asthma Carpal tunnel syndrome CHF (congestive heart failure) COPD (chronic obstructive pulmonary disease) Depression Diabetes Gallbladder disease GERD (gastroesophageal reflux disease) Glaucoma Heart disease Hypertension IBS (irritable bowel syndrome) Inflammatory arthritis Migraine Myocardial infarction Osteoporosis Surgical History Surgical History Ganglion, right hand extensor tendon Excision January 28, 2021 H/O heart artery stent H/O hernia repair H/O: hysterectomy History of bladder surgery History of carpal tunnel surgery History of colon resection History of knee replacement Hx of cholecystectomy Family History Family History Sibling Family history of thyroid disease Family history of obesity Family history of osteoporosis Family history of mental disorder Depression Family history of glaucoma Patient's brother
== END 2021-06-27 10:40 | disposition home or self-care (01) ==
PROVIDERS: Emergency Provider Nurse Practitioner Family; PCP Internal Medicine
DX: J01.90 Acute sinusitis, unspecified (principal); Z87.891 Personal history of nicotine dependence; M19.90 Unspecified osteoarthritis, unspecified site; J45.909 Unspecified asthma, uncomplicated; I11.0 Hypertensive heart disease with heart failure; I50.9 Heart failure, unspecified; J44.9 Chronic obstructive pulmonary disease, unspecified; E11.9 Type 2 diabetes mellitus without complications; K21.9 Gastro-esophageal reflux disease without esophagitis; H40.9 Unspecified glaucoma; M06.9 Rheumatoid arthritis, unspecified; M81.0 Age-related osteoporosis without current pathological fracture; Z96.659 Presence of unspecified artificial knee joint; F41.9 Anxiety disorder, unspecified
CPT/HCPCS: 99213; G0463

== ENCOUNTER 2021-07-30 12:12 | Emergency (ER) | payer MEDICARE, MEDICAID, SELFPAY ==
--- NOTE | 2021-07-30 12:15 | ED.URI ---
HPI - URI/Sore Throat General Chief Complaint: Upper Respiratory Infection Stated Complaint: sinus infection / ulcer on gum Time Seen by Provider: 07/30/21 12:15 Source: patient and RN notes reviewed History of Present Illness HPI Narrative: Patient is 76-year-old female who presents the urgent care with her friend with complaints of a sinus infection and an ulcer on the gums. Patient states that the ulcer has been there some time and she went to the dental school and they did not do anything for it . Patient was not placed on a mouthwash or given any instructions for the ulcer. Patient states that she has had the sinus issues for approximately 1 week and she has been using [id number] Sudafed. Patient states she now has a frontal headache. Patient has seen an ENT in the past but has not gone back for some time because he moved offices. Patient was seen in June for the same issue and given Augmentin, Claritin and Flonase. Patient has not been using the Claritin or the Flonase. Denies any fevers. No other acute complaints. No acute distress noted. Patient read the plan of care. Some parts of this dictation were generated by voice recognition software and may contain typographical and/or grammatical inaccuracies. Related Data Home Medications Medication Instructions Recorded Confirmed clonazepam 1 mg tablet 1 mg PO BID tablet 04/15/19 07/30/21 omeprazole 20 mg capsule,delayed 20 mg PO BID 04/15/19 07/30/21 release tamsulosin 0.4 mg capsule 0.4 mg PO DAILY 04/15/19 07/30/21 furosemide 40 mg tablet 20 mg PO BID tablet 07/27/19 07/30/21 tobramycin 0.3 %-dexamethasone 0.1 1 drp OPHTHALMIC (EYE) QID 06/05/20 07/30/21 % eye drops,suspension potassium chloride 20 mEq 20 meq PO BID tablet 07/24/20 07/30/21 tablet,extended release duloxetine 60 mg PO DAILY 01/23/21 07/30/21 atorvastatin 80 mg PO DAILY 06/27/21 07/03/21 carvedilol 12.5 mg PO BID 06/27/21 07/30/21 Allergies Allergy/AdvReac Type Severity Reaction Status Date / Time ibandronate sodium Allergy Mild Unknown Verified 07/03/21 10:25 hydromorphone Allergy Unknown drug Verified 07/03/21 10:25 induced psychosis prochlorperazine Allergy Unknown tardive Verified 07/03/21 10:25 dyskinesia Sulfa (Sulfonamide Allergy Unknown Nausea and Verified 07/03/21 10:25 Antibiotics) Vomiting alendronate sodium AdvReac Mild GERDS Verified 07/03/21 10:25 doxazosin AdvReac Mild NAUSEA AND Verified 07/03/21 10:25 VOMITING erythromycin base AdvReac Mild NAUSEA AND Verified 07/03/21 10:25 VOMITING doxycycline AdvReac Unknown Nausea and Verified 07/03/21 10:25 Vomiting gabapentin AdvReac Nausea and Verified 07/03/21 10:25 Vomiting Vicryl Sutures Allergy Mild Rash Uncoded 07/03/21 10:25 Review of Systems Review of Systems: CONSTITUTIONAL: Denies fever, chills, or sweats. EYES: Denies visual changes, redness, or discharge. ENT: Reports of sinus pressure and congestion CARDIOVASCULAR: Denies chest pain, palpitations, or edema. RESPIRATORY: Reports a mild cough without dyspnea GASTROINTESTINAL: Denies abdominal pain, nausea, vomiting, or diarrhea. GENITOURINARY: Denies dysuria or hematuria. SKIN: Denies rash or itching. MUSCULOSKELETAL: Denies back pain, joint pain, or myalgia. NEUROLOGIC: Reports of headaches All other systems reviewed are negative, except as documented in HPI. COUNT INCLUDES THE [facility] Past Medical History Medical History Allergies Anemia Ankle fracture, right Anxiety Arthritis Asthma Carpal tunnel syndrome CHF (congestive heart failure) COPD (chronic obstructive pulmonary disease) Depression Diabetes Gallbladder disease GERD (gastroesophageal reflux disease) Glaucoma Heart disease Hypertension IBS (irritable bowel syndrome) Inflammatory arthritis Migraine Myocardial infarction Osteoporosis Surgical History Surgical History (Reviewed 07/03/21 @ 10:25 by Jessy Mendenhall
[2021-07-30 12:21] VITALS: BP 106/57; PULSE 71; RESP 20; TEMP 36.6; O2SAT 97
[2021-07-30 12:32] VITALS: BP 106/57; PULSE 71; RESP 20; TEMP 36.6; O2SAT 97
== END 2021-07-30 12:41 | disposition home or self-care (01) ==
PROVIDERS: Emergency Provider Nurse Practitioner Family; PCP Internal Medicine
DX: J32.9 Chronic sinusitis, unspecified (principal); Z87.891 Personal history of nicotine dependence; M19.90 Unspecified osteoarthritis, unspecified site; J44.9 Chronic obstructive pulmonary disease, unspecified; E11.9 Type 2 diabetes mellitus without complications; H40.9 Unspecified glaucoma; I25.2 Old myocardial infarction; M81.0 Age-related osteoporosis without current pathological fracture; M06.9 Rheumatoid arthritis, unspecified; I11.0 Hypertensive heart disease with heart failure; I50.9 Heart failure, unspecified; F41.9 Anxiety disorder, unspecified; Z96.659 Presence of unspecified artificial knee joint
CPT/HCPCS: 99213; G0463

== ENCOUNTER 2021-08-06 09:00 | Outpatient (RCR) | payer MEDICARE, MEDICAID, SELFPAY ==
--- NOTE | 2021-07-15 15:11 | PTOPEVAL ---
PHYSICAL THERAPY EVALUATION AND PLAN OF CARE 07-15-21 Thank you for referring Mili Pedroza to [facility] for the diagnosis' of vertigo and decreased gait/mobility.? She wants to begin treatment for the dizziness first. After that is completed, will begin treatment for gait/mobility. Mili is scheduled to be seen for therapy? 2 x/week for 3 weeks. Please review, sign, date and return this plan of care PABLO. I agree with and certify that the following plan of care is medically necessary. Referring Physician Date Attending Provider: Jessy Carreon, URIELC *PT Outpatient Evaluation Document 07/15/21 13:40 AMISHA (Rec: 07/15/21 15:11 AMISHA [id number]) Past Medical History Source of Past Medical History Recalled from Previous Visit, Confirmed with Patient/Family Neurological History Hx Migraine Yes: daily headaches- usually last all day long Hx Other Neurological Disorders Yes: NEUROPATHY RT FOOT Cardiovascular History Hx Angina Yes: take nitro PRN Hx Coronary Stent Yes Hx Hypercholesterolemia Yes: meds Hx Hypertension Yes: meds; pt report usually 120/80 Hx Other Cardiac Disorders Yes: need cardiac follow up-- been about 1 yr since last visit Respiratory History Hx Asthma Yes: meds Hx Chronic Obstructive Pulmonary Disease Yes (COPD) Hx Sleep Apnea Yes Gastrointestinal History Hx Cholecystectomy Yes Hx Hernia Yes: 2010 ABD HERNIA REPAIR Hx Irritable Bowel Yes Hx Other Gastrointestinal Disorders Yes: 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- -cause pain nausea Genitourinary History Hx Other Genitourinary Disorders Yes: chonic UTI from not emptying bladder completely, taking meds Musculoskeletal History Hx Back Pain Yes Hx Crutches or Walker Use Yes: WALKER Query Text:If Yes, Enter Crutches, Walker, or Both in the Comment Hx Fibromyalgia Yes Hx Joint Replacement Yes: L TKA Hx Orthopedic Surgery Yes: R ankle ORIF; kyphoplasty for L2 fx; back surgery discectomy Hx Other Musculoskeletal Disorders Yes: R wrist splint due to ganglion cyst removed & cont pain fingers/arm Hematological History Hx Hematological Disorders No Significant History Endocrine History Hx Diabetes Yes: meds HEENT History Hx Cataracts Yes: BILAT REMOVED Hx Glaucoma
--- NOTE | 2021-07-30 14:22 | PCPTNOTE ---
Patient called & cancelled scheduled appointment this date due to not feeling well.
--- NOTE | 2021-08-01 09:27 | PCPTNOTE ---
Patient did not show up for scheduled appointment this date. Called patient & she stated she just woke up, & was very sorry she didn't wake up earlier to call & cancel, but she is still sick, even went to express care.
--- NOTE | 2021-08-23 13:12 | PCPTNOTE ---
PHYSICAL THERAPY DISCHARGE 08-23-21 Attending Provider: Jessy Carreon, HAND BOOKBINDER-C Patient:Mili Pedroza Date of :1945 Mrs. Pedroza has not returned for any further treatments since 08/06/2021, therefore she will be discharged at this time. She received 4 PT sessions, for the diagnosis of vertigo and decreased mobility. She called and canceled one and did not show for one appointment. Discharge PT services. The goals were not addressed. Thank you for referring Mili to [facility]. Please review, sign, date and return this discharge summary PABLO. I have been updated about the patient's current status and I agree with discharge from the above service at this time. Referring Physician Date
== END 2021-08-23 16:27 | disposition home or self-care (01) ==
LOC: ANHPT 09:00
PROVIDERS: PCP Internal Medicine; Visit Provider Nurse Practitioner
DX: R42 Dizziness and giddiness (principal); R26.89 Other abnormalities of gait and mobility
CPT/HCPCS: 97110; 97162

== ENCOUNTER 2021-08-06 13:30 | Outpatient (RCR) | payer MEDICARE, MEDICAID, SELFPAY | END 2021-10-03 23:59 | disposition home or self-care (01) | LOC: ANHBWCAUD 13:30 | PROVIDERS: PCP Internal Medicine; Visit Provider Internal Medicine | DX: Z46.1 Encounter for fitting and adjustment of hearing aid (principal) | CPT/HCPCS: 99199 ==

== ENCOUNTER → 2021-08-19 10:33 | Outpatient (CLI) | payer MEDICARE, MEDICAID, SELFPAY ==
--- NOTE | ~2021-08-19 | XR_ITS ---
EXAMINATION: XR wrist RT min 3V DATE: 08/19/2021 10:57 INDICATION: Right wrist osteoarthritis and pain. TECHNIQUE: 4 views of right wrist were obtained. COMPARISON: Right wrist radiographs 11/06/2020 FINDINGS: Bone alignment is normal. No fracture. There is mild osteoarthritis of triscaphe joint and first carpometacarpal joint. IMPRESSION: 1. Mild polyarticular osteoarthritis. Reviewed, dictated and finalized at location A. SPECTOR
== END ==
PROVIDERS: PCP Plastic Surgery; Visit Provider Plastic Surgery
DX: M19.031 Primary osteoarthritis, right wrist (principal)
CPT/HCPCS: 73110

== ENCOUNTER 2021-08-27 09:24 | Outpatient (CLI) | payer MEDICARE, MEDICAID, SELFPAY ==
[2021-08-27 10:18] LABS: Basophils Percent Auto 0.6 % (0.2-1.2); Eosinophils Absolute Auto 0.2 K/mm3 (0-0.3); Eosinophils Percent Auto 3.3 % (0-4.4); Hematocrit 32.5 % (37.0-47.0); Hemoglobin 11.1 g/dL (12.0-15.0); Immature Granulocyte Absolute 0.24 K/mm3 (0.00-0.031); Immature Granulocyte Percent A 4.4 % (0-0.5); Immature Platelet Fraction Pct 9.6 % (0.9-11.2); Lymphocytes Absolute Auto 1.76 K/mm3 (0.9-3.2); Lymphocytes Percent Auto 32.3 % (18.3-44.2); Mean Corpuscular HGB Conc 34.2 g/dl (32-36); Mean Corpuscular Hemoglobin 30.9 pg (26-34); Mean Corpuscular Volume 90.5 fl (80-100); Mean Platelet Volume 11.1 fl (7.4-10.4); Monocytes Absolute Auto 0.7 K/mm3 (0.1-0.6); Neutrophils Absolute Auto 2.5 K/mm3 (1.3-6.7); Neutrophils Percent Auto 46.4 % (45.5-73.1); Platelet Count Result 98 k/mm3 (150-375); Red Blood Count 3.59 M/mm3 (4.2-5.4); Red Cell Distribution Width 15.1 % (11.5-14.5); White Blood Count 5.5 K/mm3 (4.5-10.0)
[2021-08-27 10:23] LABS: Alanine Aminotransferase 18 U/L (4-35); Albumin Level 4.4 g/dL (3.5-5.1); Alkaline Phosphatase 80 U/L (38-126); Anion Gap 11 mmol/L (8-16); Aspartate Amino Transferase 26 U/L (14-36); Bilirubin,Total 0.4 mg/dL (0.2-1.3); Blood Urea Nitrogen 27 mg/dL (7-17); Calcium 8.9 mg/dL (8.4-10.2); Carbon Dioxide 22 mmol/L (22-30); Chloride 101 mmol/L (98-107); Cholesterol 161 mg/dL (0-200); Estimated Glomerular Filt Rate 31; Glucose 105 mg/dL (65-110); HDL Direct 47 mg/dL; Potassium 4.1 mmol/L (3.4-5.0); Sodium 134 mmol/L (137-145); Triglycerides 157 mg/dL (<150)
[2021-08-27 10:27] LABS: Hemoglobin A1C 5.6 % (<5.7)
[2021-08-27 10:34] LABS: LDL Cholesterol Direct 74 mg/dL
[2021-08-27 10:49] LABS: Iron 129 ug/dL (37-170)
[2021-08-27 10:50] LABS: Creatinine Urine 72.7 mg/dL
[2021-08-27 10:57] LABS: MALB Creatinine Ratio < 8.3 mg/g (0-30); Microalbumin Urine Random < 6.0 mg/L (0-16.7)
[2021-08-27 10:58] LABS: Percent Iron Saturation 39 % (20-50)
[2021-08-27 11:06] LABS: Vitamin D 25 Hydroxy 25.2 ng/mL
== END 2021-08-27 09:25 | disposition home or self-care (01) ==
LOC: ANHLAB 09:30
PROVIDERS: PCP Internal Medicine; Visit Provider Nurse Practitioner
DX: D50.8 Other iron deficiency anemias (principal); E11.42 Type 2 diabetes mellitus with diabetic polyneuropathy; E55.9 Vitamin D deficiency, unspecified; E78.49 Other hyperlipidemia; Z13.29 Encounter for screening for other suspected endocrine disorder
CPT/HCPCS: 36415; 80053; 80061; 82043; 82306; 83036; 83540; 83550; 84443; 85025; 85055

== ENCOUNTER 2021-09-10 12:40 | Emergency (ER) | payer MEDICARE, MEDICAID, SELFPAY ==
--- NOTE | ~2021-09-10 | CT_ITS ---
EXAMINATION: CTA chest PE protocol DATE: 09/10/2021 17:33 INDICATION: Dyspnea. Elevated d-dimer. History of COPD, congestive heart failure TECHNIQUE: Computed tomography angiography (CTA) of the chest was performed with 100 mL Omnipaque-350 intravenous contrast timed to evaluate the pulmonary arteries. Coronal maximum intensity projection 3D-reconstructions were created by the technologist. Automated exposure control and iterative reconst ruction technique were employed. Exam dose: 839.31 mGy-cm total exam DLP. COMPARISON: 09/10/2021 2 view chest 08/04/2018 CT pulmonary scan FINDINGS: There is diagnostic contrast enhancement of the pulmonary arteries and no evidence of pulmo nary embolism. No thoracic aortic aneurysm or dissection. Normal heart size. Coronary artery calcification. No pericardial or pleural effusion. No pulmonary consolidation or pulmonary mass lesion. Pneumobilia likely secondary to cholecystectomy. Status post vertebroplasty at L2 fracture. There is biconcavity of multiple thoracic vertebrae. There is diffuse idiopathic skeletal hyperostosis of the thoracic spine. IMPRESSION: No evidence of pulmonary embolism Pneumobilia secondary to cholecystectomy Status post vertebroplasty at L2; multiple biconcave thoracic vertebral bodies Diffuse idiopathic skeletal hyperostosis of the thoracic spine Reviewed, dictated and finalized at Location [facility]. Reviewed, dictated and finalized at location A.
--- NOTE | ~2021-09-10 | XR_ITS ---
EXAMINATION: XR chest 2V DATE: 09/10/2021 13:13 INDICATION: Shortness of breath TECHNIQUE: PA and lateral views of the chest were obtained. COMPARISON: Chest radiograph dated 01/10/2020 FINDINGS: Calcified nodule at the lateral left midlung zone consistent with old granulomatous disease. Minimal streaky left basilar atelectasis. No pulmonary edema, pleural effusion or pneumothorax. The cardiomed iastinal silhouette is normal. Cholecystectomy clips in right upper quadrant. L2 vertebroplasty. IMPRESSION: 1. Minimal left basilar atelectasis. No acute cardiopulmonary disease. Reviewed, dictated and finalized at location A.
--- NOTE | 2021-09-10 12:41 | ECG_ITS ---
Measurements Intervals [place] Rate: 77 P: 38 DC: 193 QRS: -15 QRSD: 96 T: -7 QT: 372 QTc: 421 Interpretive Statements SINUS RHYTHM LOW QRS VOLTAGE IN PRECORDIAL LEADS [QRS DEFLECTION < 1.0 mV IN CHEST LEADS] POOR R-WAVE PROGRESSION COMPARED TO ECG 01/25/2021 09:29:12 NO SIGNIFICANT CHANGES Electronically Signed On 09-10-2021 17:36:24 CDT by Hubert Jaimes M.D.
[2021-09-10 12:42] VITALS: BP 125/76; PULSE 81; RESP 28; TEMP 36.8; O2SAT 98
[2021-09-10 13:04] LABS: Basophils Percent Auto 0.4 % (0.2-1.2); Eosinophils Absolute Auto 0.1 K/mm3 (0-0.3); Eosinophils Percent Auto 1.7 % (0-4.4); Hematocrit 28.4 % (37.0-47.0); Hemoglobin 9.6 g/dL (12.0-15.0); Immature Granulocyte Absolute 0.24 K/mm3 (0.00-0.031); Immature Granulocyte Percent A 4.5 % (0-0.5); Lymphocytes Absolute Auto 1.86 K/mm3 (0.9-3.2); Mean Corpuscular HGB Conc 33.8 g/dl (32-36); Mean Corpuscular Volume 91.6 fl (80-100); Mean Platelet Volume 9.8 fl (7.4-10.4); Monocytes Absolute Auto 1.4 K/mm3 (0.1-0.6); Monocytes Percent Auto 25.4 % (2.6-8.5); Neutrophils Absolute Auto 1.8 K/mm3 (1.3-6.7); Platelet Count Result 50 k/mm3 (150-375); Red Cell Distribution Width 15.9 % (11.5-14.5); White Blood Count 5.3 K/mm3 (4.5-10.0)
[2021-09-10 13:19] LABS: Alanine Aminotransferase 26 U/L (4-35); Albumin Level 4.5 g/dL (3.5-5.1); Alkaline Phosphatase 81 U/L (38-126); Anion Gap 11 mmol/L (8-16); Aspartate Amino Transferase 35 U/L (14-36); Bilirubin,Total 0.6 mg/dL (0.2-1.3); Blood Urea Nitrogen 29 mg/dL (7-17); Carbon Dioxide 22 mmol/L (22-30); Chloride 102 mmol/L (98-107); Estimated CRCL calculation 35 ml/min; Estimated Glomerular Filt Rate 40; Glucose 81 mg/dL (65-110); Potassium 3.6 mmol/L (3.4-5.0); Sodium 135 mmol/L (137-145)
[2021-09-10 13:25] LABS: Acanthocytes 1+ (NORMAL); Ovalocytes 1+ (NORMAL); Platelet Estimate Decreased (Adequate)
[2021-09-10 13:31] LABS: NT Pro B Type Natriuretic Pept 530 pg/mL (5-100); Troponin I < 0.012 ng/mL (0.000-0.034)
[2021-09-10 13:35] LABS: INR 1.3; Prothrombin Time 15.9 Seconds (11.1-14.7)
[2021-09-10 13:36] LABS: Partial Thromboplastin Time 30.6 SECONDS (22.3-36.8)
[2021-09-10 15:49] VITALS: RESP 22
[2021-09-10 15:52] VITALS: BP 152/102; PULSE 88; RESP 18; O2SAT 98
--- NOTE | 2021-09-10 16:21 | ED.SOB ---
HPI - SOB/Dyspnea General Chief Complaint: Shortness of Breath/Dyspnea Stated Complaint: shortness of breath Time Seen by Provider: 09/10/21 15:45 Source: patient Mode of arrival: ambulatory Limitations: no limitations History of Present Illness HPI Narrative: The patient is a 76-year-old female with a history of diabetes, CHF, hypertension, COPD, chronic respiratory failure on 2 L oxygen via nasal cannula at night, presenting to the emergency department for evaluation of shortness of breath. Patient states she has had increasing shortness of breath with exertion over the past 10 days. Patient denies any significant chest pain, cough, hemoptysis, pleuritic pain. States that whenever she gets up to move she feels incredibly short of breath, has even utilize some home oxygen during the daytime without improvement in her symptoms. She denies any leg swelling, calf pain. Denies history of PE or coagulopathy. She denies any runny nose, congestion, sore throat. She denies any recent history of Covid. Denies fever or chills. Denies abdominal pain, nausea or vomiting. Patient states that she was referred to a 6-minute ambulation test by her primary care provider that is scheduled for tomorrow. Related Data Home Medications Medication Instructions Recorded Confirmed clonazepam 1 mg tablet 1 mg PO BID tablet 04/15/19 08/29/21 omeprazole 20 mg capsule,delayed 20 mg PO BID 04/15/19 08/29/21 release tamsulosin 0.4 mg capsule 0.4 mg PO DAILY 04/15/19 08/29/21 furosemide 40 mg tablet 20 mg PO BID tablet 07/27/19 08/29/21 tobramycin 0.3 %-dexamethasone 0.1 1 drp OPHTHALMIC (EYE) QID 06/05/20 08/29/21 % eye drops,suspension duloxetine 60 mg PO DAILY 01/23/21 08/29/21 aripiprazole 5 mg tablet 5 mg PO DAILY 08/29/21 08/29/21 Allergies Allergy/AdvReac Type Severity Reaction Status Date / Time ibandronate sodium Allergy Mild Unknown Verified 08/29/21 10:31 hydromorphone Allergy Unknown drug Verified 08/29/21 10:31 induced psychosis prochlorperazine Allergy Unknown tardive Verified 08/29/21 10:31 dyskinesia Sulfa (Sulfonamide Allergy Unknown Nausea and Verified 08/29/21 10:31 Antibiotics) Vomiting alendronate sodium AdvReac Mild GERDS Verified 08/29/21 10:31 doxazosin AdvReac Mild NAUSEA AND Verified 08/29/21 10:31 VOMITING erythromycin base AdvReac Mild NAUSEA AND Verified 08/29/21 10:31 VOMITING doxycycline AdvReac Unknown Nausea and Verified 08/29/21 10:31 Vomiting gabapentin AdvReac Nausea and Verified 08/29/21 10:31 Vomiting Vicryl Sutures Allergy Mild Rash Uncoded 08/29/21 10:31 Review of Systems Review of Systems: CONSTITUTIONAL: Denies fever, chills, or sweats. EYES: Denies visual changes, redness, or discharge. ENT: Denies rhinorrhea, congestion, sore throat, or otalgia. CARDIOVASCULAR: Denies chest pain, palpitations, or edema. RESPIRATORY: Denies cough, reports shortness of breath GASTROINTESTINAL: Denies abdominal pain, nausea, vomiting, or diarrhea. GENITOURINARY: Denies dysuria or hematuria. SKIN: Denies rash or itching. MUSCULOSKELETAL: Denies back pain, joint pain, or myalgia. NEUROLOGIC: Denies headache, numbness, or weakness. [facility] Past Medical History Medical History Allergies Anemia Ankle fracture, right Anxiety Arthritis Asthma Carpal tunnel syndrome CHF (congestive heart failure) COPD (chronic obstructive pulmonary disease) Depression Diabetes Gallbladder disease GERD (gastroesophageal reflux disease) Glaucoma Heart disease Hypertension IBS (irritable bowel syndrome) Inflammatory arthritis Migraine Myocardial infarction Osteoporosis Surgical History Surgical History Ganglion, right hand extensor tendon Excision January 28, 2021 H/O heart artery stent H/O hernia repair H/O: hysterectomy History of bladder surgery History of carpal tunnel surger
[2021-09-10 16:43] LABS: D Dimer 0.97 ug/mL (<0.48)
[2021-09-10 17:05] VITALS: BP 137/89; PULSE 84; RESP 18; O2SAT 94
--- NOTE | 2021-09-10 17:07 | PC.NURSE ---
Pt aware of need for CT and IV, states she is agreeable.
[2021-09-10 18:40] VITALS: BP 116/61; PULSE 88; RESP 19; O2SAT 96
== END 2021-09-10 18:43 | disposition home or self-care (01) ==
PROVIDERS: Emergency Medicine; Emergency Provider Emergency Medicine; PCP Internal Medicine
DX: J44.1 Chronic obstructive pulmonary disease with (acute) exacerbation (principal); D64.9 Anemia, unspecified; R06.02 Shortness of breath; F41.9 Anxiety disorder, unspecified; M19.90 Unspecified osteoarthritis, unspecified site; I11.0 Hypertensive heart disease with heart failure; I50.9 Heart failure, unspecified; K21.9 Gastro-esophageal reflux disease without esophagitis; F32.9 Major depressive disorder, single episode, unspecified
CPT/HCPCS: 36415; 71046; 71275; 80053; 83880; 84484; 85025; 85055; 85380; 85610; 85730; 93005; 99284; Q9967

== ENCOUNTER 2021-09-18 09:07 | Outpatient (CLI) | payer MEDICARE, MEDICAID, SELFPAY ==
[2021-09-18 10:27] LABS: Hematocrit 23.3 % (37.0-47.0); Hemoglobin 7.9 g/dL (12.0-15.0); Immature Platelet Fraction Pct 9.9 % (0.9-11.2); Mean Corpuscular HGB Conc 33.9 g/dl (32-36); Mean Corpuscular Hemoglobin 30.4 pg (26-34); Mean Corpuscular Volume 89.6 fl (80-100); Mean Platelet Volume 10.1 fl (7.4-10.4); Platelet Count Result 34 k/mm3 (150-375); Red Cell Distribution Width 16.6 % (11.5-14.5); White Blood Count 6.5 K/mm3 (4.5-10.0)
[2021-09-18 10:38] LABS: Alanine Aminotransferase 28 U/L (4-35); Alkaline Phosphatase 75 U/L (38-126); Anion Gap 8 mmol/L (8-16); Aspartate Amino Transferase 32 U/L (14-36); Bilirubin,Total 0.5 mg/dL (0.2-1.3); Blood Urea Nitrogen 23 mg/dL (7-17); Calcium 8.6 mg/dL (8.4-10.2); Carbon Dioxide 25 mmol/L (22-30); Chloride 98 mmol/L (98-107); Estimated Glomerular Filt Rate 36; Glucose 99 mg/dL (65-110); Potassium 3.6 mmol/L (3.4-5.0); Sodium 131 mmol/L (137-145)
== END 2021-09-18 09:08 | disposition home or self-care (01) ==
LOC: ANHLAB 09:14
PROVIDERS: PCP Internal Medicine; Visit Provider Nurse Practitioner
DX: D69.6 Thrombocytopenia, unspecified (principal); Z79.899 Other long term (current) drug therapy
CPT/HCPCS: 36415; 80053; 85027; 85055

== ENCOUNTER 2021-09-18 13:17 | Observation (INO) | payer MEDICARE, MEDICAID, SELFPAY ==
[2021-09-18] VITALS (8 sets, daily range): BP systolic 126–144; BP diastolic 63–88; PULSE 82–94; RESP 16–26; TEMP 36.3–37.4; O2SAT 87–97; BMI 37.0
--- NOTE | ~2021-09-18 | BM_ITS ---
EXAMINATION: CCL bone marrow asp w bx diag DATE: 09/20/2021 INDICATION: Thrombocytopenia. TECHNIQUE: A time-out was performed to verify the patient's name, date of , and procedure to b e performed. The procedure including the risks, benefits, and alternatives was discussed with the pat ient. Risks discussed included bleeding and infection. The patient understood the risks and agreed to proceed. The skin overlying the left ilium was prepped and draped in usual sterile fashion. Anesth etic was administered with 1% lidocaine subcutaneously. An 11 gauge needle was inserted into the iliu m with fluoroscopic guidance. Bone marrow was aspirated. An 8 gauge needle was then inserted into the ilium with fluoroscopic guidance. A core bone marrow biopsy was obtained. There were no immediate co mplications. Fluoroscopy exposure time was 0.0 minutes. The total number of images was 12. FINDINGS: Real-time fluoroscopy demonstrates a marker overlying the left posterior superior iliac spi ne. IMPRESSION: 1. Fluoro-guided bone marrow aspiration. 2. Fluoro-guided bone marrow core biopsy. Reviewed, dictated and finalized at location A.
--- NOTE | ~2021-09-18 | US_ITS ---
EXAMINATION: US abdomen limited EXAM DATE: 09/19/2021 15:24 INDICATION: Thrombocytopenia and splenomegaly TECHNIQUE: Multiple grayscale and Doppler images of the abdomen right upper quadrant were obtained (dorian y a technologist who performed the scan) and subsequently reviewed. Comparison is made to prior exami nation from 01/03/2011. FINDINGS: The pancreatic head and body are normal in appearance. The pancreatic tail is not visualized. The l iver has normal echogenicity and contour. There are no focal liver lesions identified. There is no evidence of intrahepatic biliary duct dilation. Portal venous flow was seen in the hepatopedal, nor mal direction and has normal Doppler waveform. No right-sided hydronephrosis. Spleen was also identi fied, measures 12.4 cm within normal size limits. Common bile duct measures 5 mm, which is normal. The gallbladder fossa is unremarkable. IMPRESSION: Normal liver, spleen size. Reviewed, dictated and finalized at location A. IMPRESSION: Normal liver, spleen size.
[2021-09-18 13:55] LABS: Basophils Absolute Auto 0.1 K/mm3 (0.0-0.1); Basophils Percent Auto 0.7 % (0.2-1.2); Eosinophils Absolute Auto 0.1 K/mm3 (0-0.3); Hematocrit 24.3 % (37.0-47.0); Hemoglobin 8.2 g/dL (12.0-15.0); Immature Granulocyte Absolute 1.59 K/mm3 (0.00-0.031); Immature Granulocyte Percent A 19.3 % (0-0.5); Immature Platelet Fraction Pct 9.9 % (0.9-11.2); Lymphocytes Percent Auto 24.3 % (18.3-44.2); Mean Corpuscular HGB Conc 33.7 g/dl (32-36); Mean Corpuscular Hemoglobin 30.7 pg (26-34); Mean Platelet Volume 10.4 fl (7.4-10.4); Monocytes Absolute Auto 2.7 K/mm3 (0.1-0.6); Monocytes Percent Auto 33.3 % (2.6-8.5); Neutrophils Absolute Auto 1.8 K/mm3 (1.3-6.7); Neutrophils Percent Auto 21.4 % (45.5-73.1); Platelet Count Result 39 k/mm3 (150-375); Red Blood Count 2.67 M/mm3 (4.2-5.4); Red Cell Distribution Width 16.4 % (11.5-14.5); White Blood Count 8.2 K/mm3 (4.5-10.0)
[2021-09-18 14:03] LABS: INR 1.3; Prothrombin Time 15.8 Seconds (11.1-14.7)
[2021-09-18 14:04] LABS: Partial Thromboplastin Time 35.2 SECONDS (22.3-36.8)
[2021-09-18 14:08] LABS: Acanthocytes 1+ (NORMAL); Ovalocytes 1+ (NORMAL); Platelet Estimate Decreased (Adequate); Tear Drop Cells 1+ (NORMAL)
[2021-09-18 14:09] LABS: Alanine Aminotransferase 29 U/L (4-35); Albumin Level 4.2 g/dL (3.5-5.1); Alkaline Phosphatase 79 U/L (38-126); Anion Gap 10 mmol/L (8-16); Aspartate Amino Transferase 31 U/L (14-36); Bilirubin,Total 0.5 mg/dL (0.2-1.3); Blood Urea Nitrogen 22 mg/dL (7-17); Calcium 8.9 mg/dL (8.4-10.2); Carbon Dioxide 22 mmol/L (22-30); Chloride 101 mmol/L (98-107); Estimated CRCL calculation 35 ml/min; Estimated Glomerular Filt Rate 40; Glucose 94 mg/dL (65-110); Potassium 3.5 mmol/L (3.4-5.0); Sodium 133 mmol/L (137-145)
[2021-09-18] MEDS: traMADol HCL (*CRX) 50 MG TABLET PO (15:05)
--- NOTE | 2021-09-18 15:30 | PM.IMHP ---
H&P: HPI History of Present Illness Date/Time: 09/18/21 15:30 Chief Complaint: Dark stools. Narrative: This is a 76-year-old female with hypertension, dyslipidemia, coronary artery disease with history of stent, chronic obstructive pulmonary disease, sleep apnea, bipolar disorder, depression, anxiety, Sjogren syndrome, and inflammatory arthritis who presented to the emergency department for evaluation of dark stools. She estimates having 6 loose, dark stools daily for the last 10 days or so and though she had and establish routine appoint with her primary care provider today she decided to come into the ER as she was worried that she was becoming anemic due to lightheadedness, increasing dyspnea on lesser and lesser exertion, and chills. Indeed her hemoglobin was about 1.5 g lower than what it was just a week or so ago. Her platelet count was also lower. Interestingly her stool was negative for occult blood on rectal exam done in the ER. Patient does describe periumbilical aching which is a chronic ongoing problem for the patient for which she is followed by GI and hepatobiliary at [facility], with history of multiple ERCPs and sphincterotomies. Unfortunately she continues to take between 600 and 800 mg of ibuprofen up to 4 times a day for this abdominal pain and her chronic back pain related to fibromyalgia and arthritis. She stopped taking ibuprofen yesterday as she has been having quite a bit of nausea and belching. She denies syncope, epistaxis, hematemesis, hematochezia, and hematuria. She denies easy bruising. Review of Systems Review of Systems: Twelve systems were reviewed and are negative except for as per HPI. [facility] Past Medical History Medical History (Updated 09/18/21 @ 22:22 by Marium Doyle PA-C) Allergies Anemia Anxiety Asthma Bipolar disorder Chronic kidney disease, stage 3 Chronic obstructive pulmonary disease Congestive heart failure Coronary artery disease Depression Fibromyalgia Glaucoma Hypertension Inflammatory arthritis Irritable bowel syndrome Migraine Myocardial infarction Obstructive sleep apnea Osteoporosis Sjogrens syndrome Type 2 diabetes mellitus Hemoglobin A1c was 5.6% in August 2021. Surgical History Surgical History (Updated 09/18/21 @ 22:18 by Marium Doyle PA-C) Ganglion, right hand (01/28/21) Extensors tendon excision. History of arthroplasty of left knee History of bilateral cataract extraction History of bladder surgery History of carpal tunnel surgery History of cholecystectomy History of colon resection History of coronary artery stent placement History of hernia repair History of hysterectomy History of open reduction and internal fixation (ORIF) procedure Right ankle fracture. Family History Family History Sibling Family history of thyroid disease Family history of obesity Family history of osteoporosis Family history of mental disorder Depression Family history of glaucoma Patient's brother is in good health Family history of arthritis Family history of sleep apnea Mother Family history of glaucoma Patient's mother is Father Family history of glaucoma Family history of arthritis Family history of Alzheimer's disease Family history of diabetes mellitus in first degree relative Family history of hearing loss Patient's father is Other Hypertension Social History Social History (Updated 09/18/21 @ 22:18 by Marium Doyle PA-C) Social History: [id number]: Rohan Joaquin, son. Code status: Full code. Smoking packs per day: 1 Smoking cigarettes per day: 20.0 Years smoked: 15 Smoking pack-years: 15.00 Smoking status: Former smoker Tobacco type: cigarettes Second hand tobacco smoke exposure: No Smoking end date: 01/13/14 Alcohol intake: never Substance use: never Substance use type: does not use Living arrangements
--- NOTE | 2021-09-18 15:39 | ED.GENADULT ---
HPI - General Adult General Chief complaint: GI Bleed Stated complaint: ?GI BLD, low platelets Time Seen by Provider: 09/18/21 13:20 Source: RN notes reviewed History of Present Illness HPI narrative: Patient presents emergency department from home for anemia. Patient was seen at her PCPs office today and had blood work done that showed progressive anemia at that time she is recommended come to the emergency department for further evaluation. Patient states she has been having some generalized weakness increased shortness of breath with walking she states that she has been noticing some black stools as well she denies having bright red blood in her stool she denies any fevers or chills chest pain abdominal pain nausea vomiting or any other symptoms states she is on a baby aspirin daily Related Data Home Medications Medication Instructions Recorded Confirmed clonazepam 1 mg tablet 1 mg PO BID tablet 04/15/19 08/29/21 omeprazole 20 mg capsule,delayed 20 mg PO BID 04/15/19 08/29/21 release tamsulosin 0.4 mg capsule 0.4 mg PO DAILY 04/15/19 08/29/21 furosemide 40 mg tablet 20 mg PO BID tablet 07/27/19 08/29/21 tobramycin 0.3 %-dexamethasone 0.1 1 drp OPHTHALMIC (EYE) QID 06/05/20 08/29/21 % eye drops,suspension duloxetine 60 mg PO DAILY 01/23/21 08/29/21 aripiprazole 5 mg tablet 5 mg PO DAILY 08/29/21 08/29/21 Allergies Allergy/AdvReac Type Severity Reaction Status Date / Time ibandronate sodium Allergy Mild Unknown Verified 09/18/21 13:32 hydromorphone Allergy Unknown drug Verified 09/18/21 13:32 induced psychosis prochlorperazine Allergy Unknown tardive Verified 09/18/21 13:32 dyskinesia Sulfa (Sulfonamide Allergy Unknown Nausea and Verified 09/18/21 13:32 Antibiotics) Vomiting alendronate sodium AdvReac Mild GERDS Verified 09/18/21 13:32 doxazosin AdvReac Mild NAUSEA AND Verified 09/18/21 13:32 VOMITING erythromycin base AdvReac Mild NAUSEA AND Verified 09/18/21 13:32 VOMITING doxycycline AdvReac Unknown Nausea and Verified 09/18/21 13:32 Vomiting gabapentin AdvReac Nausea and Verified 09/18/21 13:32 Vomiting Vicryl Sutures Allergy Mild Rash Uncoded 08/29/21 10:31 Review of Systems Review of Systems: Gen.: Denies fevers or chills ENT: Denies congestion Respiratory: Shortness of breath with exertion CV: Denies chest pain or palpitations GI: Denies abdominal pain nausea, emesis or diarrhea with black stool Musculoskeletal: Denies back pain or muscle pain Neuro: Denies numbness, tingling, reports generalized weakness Skin: Denies rash Except as documented, all other systems reviewed and negative [facility] Past Medical History Medical History Allergies Anemia Ankle fracture, right Anxiety Arthritis Asthma Carpal tunnel syndrome CHF (congestive heart failure) COPD (chronic obstructive pulmonary disease) Depression Diabetes Gallbladder disease GERD (gastroesophageal reflux disease) Glaucoma Heart disease Hypertension IBS (irritable bowel syndrome) Inflammatory arthritis Migraine Myocardial infarction Osteoporosis Surgical History Surgical History Ganglion, right hand extensor tendon Excision January 28, 2021 H/O heart artery stent H/O hernia repair H/O: hysterectomy History of bladder surgery History of carpal tunnel surgery History of colon resection History of knee replacement Hx of cholecystectomy Family History Family History Sibling Family history of thyroid disease Family history of obesity Family history of osteoporosis Family history of mental disorder Depression Family history of glaucoma Patient's brother is in good health Family history of arthritis Family history of sleep apnea Mother Family history of glaucoma Patient's mother is Father
--- NOTE | 2021-09-18 15:54 | PC.NURSE ---
pt to shower without incident
--- NOTE | 2021-09-18 16:58 | PC.NURSE ---
This patient, Mili Pedroza, was admitted to [facility] Room 319-01. Patient/family oriented to hospital policies and general routines including ID bracelet, bed and alarms, visiting hours, pain management, procedures, bathroom and other care routines, personal items, smoking policy, room service/diet, and visiting hours. Information on how to activate the Rapid Response Team has been discussed. Patient/Family are encouraged to report perceived risks to care and to ask questions if they do not understand what they are told or what they should do.
[2021-09-18] MEDS: MORPHINE SULFATE (*CRX) 2 MG/ML INJ IV PUSH (18:05)
[2021-09-18] MEDS: SIMETHICONE 80 MG TAB.CHEW PO (18:19)
--- NOTE | 2021-09-18 18:20 | PC.NURSE ---
medication placed in medication room tramadol locked in safe x7 pills counted with Luisa Adams.
[2021-09-18] MEDS: HYDROcodone/acetaminophen (*CRX) 5-325 MG TABLET 1 TAB PO (20:24)
[2021-09-19] VITALS (9 sets, daily range): BP systolic 99–130; BP diastolic 54–78; PULSE 70–81; RESP 17–22; TEMP 37–37.7; O2SAT 93–99
[2021-09-19] MEDS: traMADol HCL (*CRX) 50 MG TABLET PO ×3 (01:41→16:07)
[2021-09-19] MEDS: HYDROcodone/acetaminophen (*CRX) 5-325 MG TABLET 1 TAB PO (04:01)
--- NOTE | 2021-09-19 05:01 | PC.NURSE ---
[address] Cancino that pt states that she is not allergic to hydromorphone , one time order for norco was given.
[2021-09-19 06:21] LABS: Basophils Absolute Auto 0.1 K/mm3 (0.0-0.1); Basophils Percent Auto 0.9 % (0.2-1.2); Eosinophils Absolute Auto 0.1 K/mm3 (0-0.3); Eosinophils Percent Auto 1.1 % (0-4.4); Hematocrit 23.7 % (37.0-47.0); Immature Granulocyte Absolute 1.68 K/mm3 (0.00-0.031); Immature Granulocyte Percent A 21.2 % (0-0.5); Immature Platelet Fraction Pct 9.3 % (0.9-11.2); Lymphocytes Absolute Auto 1.84 K/mm3 (0.9-3.2); Lymphocytes Percent Auto 23.2 % (18.3-44.2); Mean Corpuscular HGB Conc 33.8 g/dl (32-36); Mean Corpuscular Hemoglobin 30.5 pg (26-34); Mean Corpuscular Volume 90.5 fl (80-100); Mean Platelet Volume 9.6 fl (7.4-10.4); Monocytes Absolute Auto 2.5 K/mm3 (0.1-0.6); Monocytes Percent Auto 31.9 % (2.6-8.5); Neutrophils Absolute Auto 1.7 K/mm3 (1.3-6.7); Neutrophils Percent Auto 21.7 % (45.5-73.1); Platelet Count Result 37 k/mm3 (150-375); Red Blood Count 2.62 M/mm3 (4.2-5.4); Red Cell Distribution Width 16.8 % (11.5-14.5); White Blood Count 7.9 K/mm3 (4.5-10.0)
[2021-09-19 06:40] LABS: Alanine Aminotransferase 28 U/L (4-35); Alkaline Phosphatase 74 U/L (38-126); Anion Gap 10 mmol/L (8-16); Aspartate Amino Transferase 30 U/L (14-36); Bilirubin,Total 0.5 mg/dL (0.2-1.3); Blood Urea Nitrogen 18 mg/dL (7-17); CRP 4.7 mg/dL (<1.0); Calcium 8.7 mg/dL (8.4-10.2); Carbon Dioxide 22 mmol/L (22-30); Chloride 102 mmol/L (98-107); Estimated CRCL calculation 46 ml/min; Estimated Glomerular Filt Rate 54; Glucose 113 mg/dL (65-110); Lactate Dehydrogenase 646 U/L (313-618); Potassium 3.6 mmol/L (3.4-5.0); Sodium 134 mmol/L (137-145)
[2021-09-19 06:55] LABS: Iron 98 ug/dL (37-170)
[2021-09-19 07:04] LABS: Percent Iron Saturation 35 % (20-50)
--- NOTE | 2021-09-19 07:15 | WPDGICN ---
Assessment and Plan Assessment and plan (1) Melena: Code(s): K92.1 - Melena Status: Acute Assessment and Plan: given that she she takes a large dose of NSAIDs every day, I suspect that she has peptic ulcer disease, gastric or duodenal ulcers. I discussed endoscopy with her. She has had several ERCPs in [place] and she is familiar with the procedures. I explained that hopefully we can find something that may be amenable to clipping if we see a visible vessel for instance. I also emphasized that she will need to cut back on NSAIDs. (2) Obstructive sleep apnea: Code(s): G47.33 - Obstructive sleep apnea (adult) (pediatric) Status: Acute Assessment and Plan: She states that she actually sleeps fairly well at night now but she has been getting more short of breath during the day. That was her presenting complaint when she saw her primary care provider yesterday, her shortness of breath. She states she is going to have a walking test this morning to test her endurance. (3) Thrombocytopenia: Code(s): D69.6 - Thrombocytopenia, unspecified Status: Acute Assessment and Plan: This seems to be somewhat acute in onset. I believe she would benefit from Hematology consultation. (4) Fibromyalgia: Code(s): M79.7 - Fibromyalgia Status: Acute Assessment and Plan: This is 1 of the reasons she takes high doses of NSAIDs. (5) Chronic kidney disease, stage 3: Code(s): N18.30 - Chronic kidney disease, stage 3 unspecified Status: Acute GI Consult Note Consult date/time: 09/19/21 07:15 HPI: Mili Pedroza is a 76 year old female with hypertension, dyslipidemia, coronary artery disease with history of stent, chronic obstructive pulmonary disease, sleep apnea, bipolar disorder, depression, anxiety, Sjogren syndrome, and inflammatory arthritis who presented to the emergency department for evaluation of dark stools. She estimates having 6 loose, dark stools daily for the last 10 days or so and though she had and establish routine appoint with her primary care provider today she decided to come into the ER as she was worried that she was becoming anemic due to lightheadedness, increasing dyspnea on lesser and lesser exertion, and chills. Indeed her hemoglobin was about 1.5 g lower than what it was just a week or so ago. Her platelet count was also lower. if in fact her platelet count which was normal a year ago at 172,000 has been gradually dropping. Was 98,000 in August and now 39,000. the patient states that she takes 6 tablets of ibuprofen each 800 mg daily. Takes his for variety of reasons. She also takes an 81 mg aspirin tablet. She has never had a gastrointestinal bleed before. She states that her stools became dark about 4 days ago. She wondered if it might be because she has been iron, although she added that her stools have never been this black before. Review of Systems Review of Systems: All systems reviewed & are unremarkable except as noted in HPI and below PMFSH Past Medical History Medical History Allergies Anemia Anxiety Asthma Bipolar disorder Chronic kidney disease, stage 3 Chronic obstructive pulmonary disease Congestive heart failure Coronary artery disease Depression Fibromyalgia Glaucoma Hypertension Inflammatory arthritis Irritable bowel syndrome Migraine Myocardial infarction Obstructive sleep apnea Osteoporosis Sjogrens syndrome Type 2 diabetes mellitus Hemoglobin A1c was 5.6% in August 2021. Surgical History Surgical History Ganglion, right hand (01/28/21) Extensors tendon excision. History of arthroplasty of left knee History of bilateral cataract extraction History of bladder surgery History of carpal tunnel surgery History of cholecystectomy History of colon resection History of coronary artery stent placeme
[2021-09-19 07:38] LABS: Folic Acid 14.2 ng/mL (2.76->20); Vitamin B12 > 1000.0 pg/mL (239-931)
[2021-09-19 07:56] LABS: Glucose Point of Care 113 mg/dl (65-105)
[2021-09-19] MEDS: FLUTICASONE PROPIONATE 0.05% NA SPR 16 GM BTL (*BKC) 2 SPRAY NASAL (08:20)
[2021-09-19] MEDS: TOBRAMYCIN/DEXAMETHASONE OP 2.5 ML BTL 1 DROP EACH EYE ×3 (08:20→20:35)
[2021-09-19] MEDS: LOSARTAN POTASSIUM 100 MG TABLET BY MOUTH (08:20)
[2021-09-19] MEDS: POTASSIUM CHLORIDE 20 MEQ PACKET (FOR LIQUID) PO ×2 (08:20→16:11)
[2021-09-19] MEDS: UMECLIDINIUM/VILANTEROL 62.5-25 MCG ELLIPTA 1 PUFF INHALATION (08:20)
[2021-09-19] MEDS: HYDROXYCHLOROQUINE SULFATE 200 MG TABLET 400 MG PO (08:20)
[2021-09-19] MEDS: SENNA/DOCUSATE SODIUM TABLET 1 TAB BY MOUTH (08:21)
[2021-09-19] MEDS: ATORVASTATIN 40 MG TABLET 80 MG PO (08:21)
[2021-09-19] MEDS: MAGNESIUM OXIDE 400 MG TABLET 800 MG PO ×2 (08:21→16:11)
[2021-09-19] MEDS: THERAPEUTIC MULTIVITAMINS/MINERALS TAB (*BKC) 1 TABLET PO (08:21)
[2021-09-19] MEDS: TAMSULOSIN HCL 0.4 MG CAPSULE PO (08:21)
[2021-09-19] MEDS: carvediloL 12.5 MG TABLET PO ×2 (08:21→16:11)
[2021-09-19] MEDS: LORATADINE 10 MG TABLET PO (08:21)
[2021-09-19] MEDS: PANTOPRAZOLE 40 MG TABLET PO ×2 (08:21→16:11)
[2021-09-19] MEDS: TRIAMCINOLONE ACET 0.1% CREAM 80 GM TUBE 1 APPLIC TOPICAL (08:22)
[2021-09-19] MEDS: DULoxetine HCL 60 MG CAPSULE.DR PO (08:22)
[2021-09-19] MEDS: RALOXIFENE HCL (*CHEMO) 60 MG TABLET PO (08:22)
[2021-09-19] MEDS: FUROSEMIDE 20 MG TABLET PO ×2 (08:22→16:12)
[2021-09-19] MEDS: FAMOTIDINE 20 MG TABLET BY MOUTH (08:22)
[2021-09-19] MEDS: ACETAMINOPHEN 325 MG TABLET 650 MG PO ×2 (08:26→16:07)
[2021-09-19] MEDS: clonazePAM (*CRX) 0.5 MG TABLET 1 MG PO ×2 (08:27→16:07)
--- NOTE | 2021-09-19 09:48 | PC.NURSE ---
pharmacy updated that pt currently taking 15 mg po lexpro daily and duloxetine 60 mg po daily. Pharmacy to verify Lexapro order.
[2021-09-19] MEDS: ESCITALOPRAM OXALATE 5 MG TABLET PO (11:04)
[2021-09-19] MEDS: ESCITALOPRAM OXALATE 10 MG TABLET PO (11:04)
[2021-09-19] MEDS: LACTATED RINGERS 1,000 ML 150 ML IV CONT (11:13)
[2021-09-19 11:19] LABS: Glucose Point of Care 101 mg/dl (65-105)
--- NOTE | 2021-09-19 12:48 | PM.IMPN ---
Progress Note: A&P Assessment and Plan (1) Acute on chronic anemia: Code(s): D64.9 - Anemia, unspecified Status: Acute Assessment and Plan: - Recent Dark Stools. - Hemoccult negative on rectal exam done in the emergency department. - Notable marked Thrombocytopenia as well. Hematology consulted. - Dr. Aguilar performed EGD today and found Gastritis. - H&H is 8.0/23.7. - B12 is >1000. - Folate is 14.2. - Ferritin is 343. - Transfuse as needed. - Trend H&H - Dr. Presley is consulted for recommendations. (2) Thrombocytopenia: Code(s): D69.6 - Thrombocytopenia, unspecified Status: Acute Assessment and Plan: - Platelets were normal on 07/26/2018 at 227, and were normal also on 08/04/2020 at 172. Since 08/27/2021 her platelets are slowly trending downward. Since this admission she is in the 30's. - Consult Dr. Presley, appreciate recommendations. (3) Dark stools: Code(s): R19.5 - Other fecal abnormalities Status: Acute Assessment and Plan: - Trend labs - Negative occult blood in ER. - EGD today per Dr. Aguilar shows Gastritis. (4) Chronic kidney disease, stage 3: Qualifiers: Chronic kidney disease stage 3 subtype: unspecified whether 3a or 3b Qualified Code(s): N18.30 - Chronic kidney disease, stage 3 unspecified Code(s): N18.30 - Chronic kidney disease, stage 3 unspecified Status: Acute Assessment and Plan: - Normal renal function with Cr of 1.0 and BUN of 18. (5) Type 2 diabetes mellitus: Qualifiers: Diabetes mellitus long distance operator insulin use: without intermediate use Diabetes mellitus complication status: without complication Qualified Code(s): E11.9 - Type 2 diabetes mellitus without complications Code(s): E11.9 - Type 2 diabetes mellitus without complications Status: Acute Assessment and Plan: - Accu checks AC and HS - Hypoglycemic protocol - Continue home medications. Time Spent With Patient Time with patient: 15 - 25 minutes Subjective Date/time seen: 09/19/21 1012 This pt. was examined at the bedside today in interval exam after she was admitted to the hospital for a potential GI bleed. She also has low Hgb and Thrombocytopenia. Dr. Aguilar consulted on pt. today and was concerned with her amount of NSAID's that she takes and performed an EGD on the patient with findings of gastritis. She is on Pepcid and PPI BID. A consult is placed for Dr. Presley for evaluation of her Thrombocytopenia. We are awaiting him to see her. Pt. states she has some mild abdominal pain without any N/V/D, and no CP or dyspnea at this time. Review of Systems Review of Systems: All systems reviewed & are unremarkable except as noted in HPI and below Exam Narrative: General: Chronically ill-appearing female sitting up in bed. in no acute distress at this time. HEENT: MMM, sclera are clear. Neck: Supple. No JVD. FROM. Respiratory: Decreased lung sounds with no adventitious sounds. Cardiovascular: Regular rate and rhythm with S1-S2. No m,r,g,h Gastrointestinal: Abdomen is soft and NT, with bowel sounds present in all four quadrants. Skin: Warm and dry. Slightly pale. Extremities: No cyanosis, clubbing, or significant edema. Radial and pedal pulses intact. Neurological: Alert and oriented. Cranial nerves 2-12 are grossly intact. No gross focal deficits to casual conversation. Psychiatric: Appropriate mood and affect. Objective Data Vital Signs Vital Signs: Vital Signs - 24 hr 09/18/21 13:26 09/18/21 13:29 09/18/21 13:32 Temperature 99.3 F 97.3 F L Pulse Rate 84 91 85 Respiratory Rate 17 17 25 H Blood Pressure 126/63 Pulse Oximetry 95 95 87 L 09/18/21 14:07 09/18/21 14:15 09/18/21 14:18 Temperature Pulse Rate 83 86 86 Respiratory Rate 22 H 26 H 22 H Blood Pressure Pulse Oximetry 09/18/21 15:05 09/18/21 22:00 09/19/21 06:00 Temperature 99.0 F 99.8 F H Pulse Rate 82 94 8
--- NOTE | 2021-09-19 13:06 | PDONCCN ---
HPI - Date of Consult Date/Time: 09/19/21 13:06 Requesting Physician: SANTHOSH Osman Primary Care Provider: Chad Lou, DO - Consult Narrative Reason for consult: Anemia and thrombocytopenia Narrative: Mili Pedroza is a 76 year old female with history of coronary artery disease status post stent placement, COPD, sleep apnea, inflammatory arthritis and Sjogren syndrome came into the hospital with complain of dark stools. She has been having some loose stools as well. Complain of tiredness and fatigue. Denies any weight loss. She has been complaining of shortness of breath and dyspnea on exertion. Hemoccult stool was negative in the ER. She has been taking ibuprofen 4 times a day for abdominal pain and chronic back pain. Labs showed hemoglobin of 8.2 [place] [address]. Patient had EGD done today that showed gastritis. CTA chest showed no evidence of PE. There was L2 vertebroplasty. She denies any previous history of hematological disorder. There is no history of malignancy. Review of Systems - Review of Systems All systems reviewed & are unremarkable except as noted in HPI and [facility] Medical History: Medical History (Last Reviewed 09/19/21 @ 07:18 by Trav Aguilar MD) Allergies Anemia Anxiety Asthma Bipolar disorder Chronic kidney disease, stage 3 Chronic obstructive pulmonary disease Congestive heart failure Coronary artery disease Depression Fibromyalgia Glaucoma Hypertension Inflammatory arthritis Irritable bowel syndrome Migraine Myocardial infarction Obstructive sleep apnea Osteoporosis Sjogrens syndrome Type 2 diabetes mellitus Hemoglobin A1c was 5.6% in August 2021. Surgical History: Surgical History (Last Reviewed 09/19/21 @ 07:18 by Trav Aguilar MD) Ganglion, right hand Onset Date: 01/28/21 Extensors tendon excision. History of arthroplasty of left knee History of bilateral cataract extraction History of bladder surgery History of carpal tunnel surgery History of cholecystectomy History of colon resection History of coronary artery stent placement History of hernia repair History of hysterectomy History of open reduction and internal fixation (ORIF) procedure Right ankle fracture. Family History: Family History (Last Reviewed 09/19/21 @ 07:18 by Trav Aguilar MD) Sibling Family history of thyroid disease Family history of obesity Family history of osteoporosis Family history of mental disorder Depression Family history of glaucoma Patient's brother is in good health Family history of arthritis Family history of sleep apnea Mother Family history of glaucoma Patient's mother is Father Family history of glaucoma Family history of arthritis Family history of Alzheimer's disease Family history of diabetes mellitus in first degree relative Family history of hearing loss Patient's father is Other Hypertension - Social History Social History: Social History (Last Reviewed 09/19/21 @ 07:18 by Trav Aguilar MD) Alcohol Use: Alcohol intake: never Substance Use: Substance use: never Substance use type: does not use Others: Spiritual care concerns: No Living Arrangements: Living arrangements: with family Oppucation/Education: Occupation/Education: retired Smoking Status: Smoking status: Former smoker Tobacco type: cigarettes Second hand tobacco smoke exposure: No Smoking end date: 01/13/14 Smoking Pack-years: Smoking packs per day: 1 Smoking cigarettes per day: 20.0 Years smoked: 15 Smoking pack-years: 15.00 Meds Home Medications Medication Instructions Recorded Confirmed Type clonazepam 1 mg tablet 1 mg PO BID tablet 04/15/19 09/18/21 History omeprazole 20 mg capsule,delayed 20 mg PO BID 04/15/19 09/18/21 History release tamsulosin 0.4 mg capsule 0.4 mg PO DAILY 04/15/19
--- NOTE | 2021-09-19 13:22 | PC.NURSE ---
lab unable to do plt antibody direct IgG, test only available on Thursday, Thursday, or Thursday r/t how lab ships samples. Md Presley informed, state will do outpatient then.
--- NOTE | 2021-09-19 14:40 | PC.NURSE ---
pt scheduled for bone marrow aspiration tomorrow at 830 am in medical lab technologist. Informed by medical lab technologist nurse to hold meds until after procedure.
[2021-09-19 17:19] LABS: Glucose Point of Care 109 mg/dl (65-105)
--- NOTE | 2021-09-19 18:14 | PC.NURSE ---
labor specialist to obtain consent tomorrow per to procedure.
--- NOTE | 2021-09-19 18:16 | PC.NURSE ---
pt refusing bed alarm, stated it is against her rights.
--- NOTE | 2021-09-19 18:54 | PC.NURSE ---
stop bang score 8 pt high risk
[2021-09-19 20:07] LABS: Glucose Point of Care 90 mg/dl (65-105)
[2021-09-20] MEDS: traMADol HCL (*CRX) 50 MG TABLET PO ×2 (03:20→12:02)
[2021-09-20 05:38] VITALS: BP 128/61; PULSE 87; RESP 20; TEMP 36.9; O2SAT 97
[2021-09-20 06:02] LABS: Hematocrit 24.5 % (37.0-47.0); Hemoglobin 8.4 g/dL (12.0-15.0); Immature Platelet Fraction Pct 9.4 % (0.9-11.2); Mean Corpuscular HGB Conc 34.3 g/dl (32-36); Mean Corpuscular Volume 90.4 fl (80-100); Mean Platelet Volume 10.5 fl (7.4-10.4); Platelet Count Result 35 k/mm3 (150-375); Red Blood Count 2.71 M/mm3 (4.2-5.4); Red Cell Distribution Width 16.8 % (11.5-14.5); White Blood Count 6.8 K/mm3 (4.5-10.0)
[2021-09-20 06:06] LABS: INR 1.3; Prothrombin Time 15.2 Seconds (11.1-14.7)
[2021-09-20 06:08] LABS: Alanine Aminotransferase 28 U/L (4-35); Albumin Level 4.1 g/dL (3.5-5.1); Alkaline Phosphatase 78 U/L (38-126); Anion Gap 8 mmol/L (8-16); Aspartate Amino Transferase 29 U/L (14-36); Bilirubin,Total 0.6 mg/dL (0.2-1.3); Blood Urea Nitrogen 15 mg/dL (7-17); Calcium 8.8 mg/dL (8.4-10.2); Carbon Dioxide 23 mmol/L (22-30); Chloride 103 mmol/L (98-107); Estimated CRCL calculation 56 ml/min; Estimated Glomerular Filt Rate > 60; Glucose 104 mg/dL (65-110); Magnesium 2.1 mg/dL (1.6-2.3); Potassium 3.8 mmol/L (3.4-5.0); Sodium 134 mmol/L (137-145)
--- NOTE | 2021-09-20 07:13 | WPDGIPROGNO ---
Progress Note: A&P Assessment and Plan (1) Melena: Code(s): K92.1 - Melena Status: Acute Assessment and Plan: given that she she takes a large dose of NSAIDs every day, I suspect that she has peptic ulcer disease, gastric or duodenal ulcers. I discussed endoscopy with her. She has had several ERCPs in [place] and she is familiar with the procedures. I explained that hopefully we can find something that may be amenable to clipping if we see a visible vessel for instance. I also emphasized that she will need to cut back on NSAIDs. 09/20 I went over the results of her endoscopy with her. She had only minimal 'gastriti's with some edema in the antrum. There was no evidence of any bleeding source. I did however tolerate she ought try to cut back on NSAIDs (2) Obstructive sleep apnea: Code(s): G47.33 - Obstructive sleep apnea (adult) (pediatric) Status: Acute Assessment and Plan: She states that she actually sleeps fairly well at night now but she has been getting more short of breath during the day. That was her presenting complaint when she saw her primary care provider yesterday, her shortness of breath. She states she is going to have a walking test this morning to test her endurance. (3) Thrombocytopenia: Code(s): D69.6 - Thrombocytopenia, unspecified Status: Acute Assessment and Plan: This seems to be somewhat acute in onset. I believe she would benefit from Hematology consultation. 09/20 the patient is scheduled for bone marrow aspiration today. She asked me if I had any more information about her hematologic workup. I inquired what she was told by the tow car driver. She states that she did not see him. I told her that he had apparently left her his business card but she does not believe she has the card either. Perhaps she was drowsy when he examined her. (4) Fibromyalgia: Code(s): M79.7 - Fibromyalgia Status: Acute Assessment and Plan: This is 1 of the reasons she takes high doses of NSAIDs. (5) Chronic kidney disease, stage 3: Qualifiers: Chronic kidney disease stage 3 subtype: unspecified whether 3a or 3b Qualified Code(s): N18.30 - Chronic kidney disease, stage 3 unspecified Code(s): N18.30 - Chronic kidney disease, stage 3 unspecified Status: Acute Subjective Date/time seen: 09/20/21 07:13 Review of Systems Review of Systems: All systems reviewed & are unremarkable except as noted in HPI and below Exam Const: General: alert Nutritional Appearance: overweight Orientation/consciousness: patient oriented x3 Resp: Auscultation: clear to auscultation bilaterally Cardio: Rhythm: regular rhythm Skin: General skin exam: no ecchymosis and pallor Neuro: General: patient oriented x3 Objective Data Vital Signs Vital Signs: Vital Signs - 24 hr 09/19/21 08:00 09/19/21 08:21 09/19/21 11:09 Temperature 37.0 C Pulse Rate 80 80 70 Respiratory Rate 20 18 Blood Pressure 102/78 Pulse Oximetry 95 99 09/19/21 11:44 09/19/21 11:54 09/19/21 12:04 Temperature Pulse Rate 71 71 78 Respiratory Rate 22 H 18 19 Blood Pressure 100/57 L 99/59 L 130/59 L Pulse Oximetry 93 93 99 09/19/21 16:11 09/19/21 21:57 09/20/21 05:38 Temperature 37.1 C 36.9 C Pulse Rate 74 79 87 Respiratory Rate 17 20 Blood Pressure 114/54 L 128/61 Pulse Oximetry 94 97 Intake/Output Intake/Output: Intake & Output 09/17/21 09/18/21 09/19/21 09/20/21 23:59 23:59 23:59 23:59 Intake Total 236 240 200 Output Total 1 500 500 Balance 235 260 300 Meds/Results Medications: Active Medications Generic Name Dose Route Start Last Admin Trade Name Freq PRN Reason Stop Dose Admin Acetaminophen 650 mg 09/18/21 17:54 09/19/21 16:07 Acetaminophen 325 Mg Tablet PO 650 mg Q6H PRN Administration Mild Pain (1-3) or Fever Albuterol 2.5 mg 09/18/21 22:34 Albuterol Sulfate Neb 2.5 Mg/
[2021-09-20 07:17] LABS: Acanthocytes 1+ (NORMAL); Band Neutrophils Percent 2 % (0-6); Eosinophils Absolute Manual 0.13 K/mm3 (0.02-0.5); Eosinophils Percent Manual 2 % (0-4); Lymphocytes Absolute Manual 3.74 K/mm3 (1.1-4.5); Metamyelocytes Percent 2 %; Microcytosis 1+ (NORMAL); Monocytes Absolute Manual 1.29 K/mm3 (0.1-0.90); Monocytes Percent Manual 19 % (3-9); Neutrophils Absolute Manual 1.49 K/mm3 (1.7-7.2); Neutrophils Percent Manual 20 % (46-73); Ovalocytes 1+ (NORMAL); Platelet Estimate Decreased (Adequate); Total Cells Counted 100
[2021-09-20 07:21] LABS: Atypical Lymphocytes Present
[2021-09-20 07:39] LABS: Glucose Point of Care 102 mg/dl (65-105)
[2021-09-20] MEDS: UMECLIDINIUM/VILANTEROL 62.5-25 MCG ELLIPTA 1 PUFF INHALATION (09:20)
[2021-09-20 10:07] VITALS: PULSE 88
[2021-09-20] MEDS: POTASSIUM CHLORIDE 20 MEQ PACKET (FOR LIQUID) PO (10:07)
[2021-09-20] MEDS: clonazePAM (*CRX) 0.5 MG TABLET 1 MG PO (10:07)
[2021-09-20] MEDS: MAGNESIUM OXIDE 400 MG TABLET 800 MG PO (10:07)
[2021-09-20] MEDS: THERAPEUTIC MULTIVITAMINS/MINERALS TAB (*BKC) 1 TABLET PO (10:07)
[2021-09-20] MEDS: HYDROXYCHLOROQUINE SULFATE 200 MG TABLET 400 MG PO (10:07)
[2021-09-20] MEDS: ATORVASTATIN 40 MG TABLET 80 MG PO (10:07)
[2021-09-20] MEDS: carvediloL 12.5 MG TABLET PO (10:07)
[2021-09-20] MEDS: ESCITALOPRAM OXALATE 10 MG TABLET PO (10:07)
[2021-09-20] MEDS: DULoxetine HCL 60 MG CAPSULE.DR PO (10:08)
[2021-09-20] MEDS: RALOXIFENE HCL (*CHEMO) 60 MG TABLET PO (10:08)
[2021-09-20] MEDS: FUROSEMIDE 20 MG TABLET PO (10:08)
[2021-09-20] MEDS: FAMOTIDINE 20 MG TABLET BY MOUTH (10:08)
[2021-09-20] MEDS: FLUTICASONE PROPIONATE 0.05% NA SPR 16 GM BTL (*BKC) 2 SPRAY NASAL (10:08)
[2021-09-20] MEDS: LORATADINE 10 MG TABLET PO (10:08)
[2021-09-20] MEDS: LOSARTAN POTASSIUM 100 MG TABLET BY MOUTH (10:08)
[2021-09-20] MEDS: TAMSULOSIN HCL 0.4 MG CAPSULE PO (10:08)
[2021-09-20] MEDS: ESCITALOPRAM OXALATE 5 MG TABLET PO (10:08)
[2021-09-20] MEDS: PANTOPRAZOLE 40 MG TABLET PO (10:09)
[2021-09-20] MEDS: TOBRAMYCIN/DEXAMETHASONE OP 2.5 ML BTL 1 DROP EACH EYE ×2 (10:09→12:03)
[2021-09-20] MEDS: TRIAMCINOLONE ACET 0.1% CREAM 80 GM TUBE 1 APPLIC TOPICAL (10:10)
[2021-09-20 11:58] LABS: Glucose Point of Care 97 mg/dl (65-105)
[2021-09-20 14:00] VITALS: BP 113/86; PULSE 90; RESP 18; TEMP 36.2; O2SAT 92
--- NOTE | 2021-09-20 15:06 | WPDANESPN ---
Anes - Prog Note Post-Op Date/Time: 09/20/21 15:06 Cardiovascular status: normal Respiratory status: normal Airway patency: baseline Mental status: baseline Post-Op hydration status: normal Vital Signs: Last Vital Signs Temp 98.4 F 09/20/21 05:38 Pulse 88 09/20/21 10:07 Resp 20 09/20/21 05:38 BP 128/61 09/20/21 05:38 Pulse Ox 97 09/20/21 05:38 Pain Score (VAS): 0 I/O: Intake & Output 09/19/21 09/20/21 09/20/21 23:59 07:59 15:59 Intake Total 240 200 Output Total 500 Balance 240 -300 Laboratory Tests 09/20/21 05:36 09/20/21 05:36 09/19/21 09/19/21 09/20/21 16:41 20:03 05:36 WBC 6.8 RBC 2.71 L Hgb 8.4 L Hct 24.5 L MCV 90.4 MCH 31.0 MCHC 34.3 RDW 16.8 H Plt Count 35 L MPV 10.5 H Immature Gran % (Auto) Not Reportable Neut % (Auto) Not Reportable Lymph % (Auto) Not Reportable [place] % (Auto) Not Reportable Eos % (Auto) Not Reportable Baso % (Auto) Not Reportable Lymph # (Auto) Not Reportable [place] # (Auto) Not Reportable Eos # (Auto) Not Reportable Baso # (Auto) Not Reportable Abs Immat Gran (auto) Not Reportable Absolute Neuts (auto) Not Reportable Absolute Nucleated RBC Not Reportable Total Counted 100 Neutrophils % (Manual) 20 L Band Neutrophils % 2 Lymphocytes % (Manual) 55.0 H Monocytes % (Manual) 19 H Eosinophils % (Manual) 2 Metamyelocytes % 2 Nucleated RBC % Not Reportable Abs Neuts (Manual) 1.49 L Abs Lymphs (Manual) 3.74 Abs Monocytes (Manual) 1.29 H Absolute Eos (Manual) 0.13 Atypical Lymphocytes Present Platelet Estimate Decreased % Immature Plt Fraction 9.4 Microcytosis 1+ Ovalocytes 1+ Acanthocytes (Spur) 1+ PT INR Sodium Potassium Chloride Carbon Dioxide Anion Gap BUN Creatinine Estim Creat Clear Calc Estimated GFR Glucose POC Capillary Glucose 109 H 90 Calcium Magnesium Total Bilirubin AST ALT Alkaline Phosphatase Total Protein Albumin 09/20/21 09/20/21 09/20/21 05:36 05:36 07:32 WBC RBC Hgb Hct MCV MCH MCHC RDW Plt Count MPV Immature Gran % (Auto) Neut % (Auto) Lymph % (Auto) [place] % (Auto) Eos % (Auto) Baso % (Auto) Lymph # (Auto) [place] # (Auto) Eos # (Auto) Baso # (Auto) Abs Immat Gran (auto) Absolute Neuts (auto) Absolute Nucleated RBC Total Counted Neutrophils % (Manual) Band Neutrophils % Lymphocytes % (Manual) Monocytes % (Manual) Eosinophils % (Manual) Metamyelocytes % Nucleated RBC % Abs Neuts (Manual) Abs Lymphs (Manual) Abs Monocytes (Manual) Absolute Eos (Manual) Atypical Lymphocytes Platelet Estimate % Immature Plt Fraction Microcytosis Ovalocytes Acanthocytes (Spur) PT 15.2 H INR 1.3 Sodium 134 L Potassium 3.8 Chloride 103 Carbon Dioxide 23 Anion Gap 8 BUN 15 Creatinine 0.80 Estim Creat Clear Calc 56 Estimated GFR > 60 Glucose 104 POC Capillary Glucose 102 Calcium 8.8 Magnesium 2.1 Total Bilirubin 0.6 AST 29 ALT 28 Alkaline Phosphatase 78 Total Protein 7.0 Albumin 4.1 09/20/21 11:51 WBC RBC Hgb Hct MCV MCH MCHC RDW Plt Count MPV Immature Gran % (Auto) Neut % (Auto) Lymph % (Auto) [place] % (Auto) Eos % (Auto) Baso % (Auto) Lymph # (Auto) [place] # (Auto) Eos # (Auto) Baso # (Auto) Abs Immat Gran (auto) Absolute Neuts (auto) Absolute Nucleated RBC Total Counted Neutrophils % (Manual) Band Neutrophils % Lymphocytes % (Manual) Monocytes % (Manual) Eosinophils % (Manual) Metamyelocytes % Nucleated RBC % Abs Neuts (Manual) Abs Lymphs (Manual) Abs Monocytes (Manual) Absolute Eos (Manual) Atypical Lymphocytes Platelet Estimate % Immature Plt Fraction Microcytosis
--- NOTE | 2021-09-20 15:37 | PM.DS ---
DS: Admitting Diagnosis Discharge Date 09/20/2021 Admitting Diagnosis Dark stools DS: Discharge Diagnosis Discharge Diagnosis (1) Acute on chronic anemia: Code(s): D64.9 - Anemia, unspecified Status: Acute Assessment and Plan: - Recent Dark Stools. - Hemoccult negative on rectal exam done in the emergency department. - Notable marked Thrombocytopenia as well. Hematology consulted. - Dr. Aguilar performed EGD today and found Gastritis. - H&H is 8.0/23.7. - B12 is >1000. - Folate is 14.2. - Ferritin is 343. - Transfuse as needed. - Trend H&H (2) Thrombocytopenia: Code(s): D69.6 - Thrombocytopenia, unspecified Status: Acute Assessment and Plan: - Platelets were normal on 07/26/2018 at 227, and were normal also on 08/04/2020 at 172. Since 08/27/2021 her platelets are slowly trending downward. Since this admission she is in the 30's. - Consult Dr. Presley, appreciate recommendations. PT to follow with Dr Presley on discharge. platelets are 35 on discharge no bleeding reported. (3) Dark stools: Code(s): R19.5 - Other fecal abnormalities Status: Acute Assessment and Plan: - Trend labs - Negative occult blood in ER. - EGD today per Dr. Aguilar shows Gastritis. Adviced to quit using NSAID pt uses 4 ibuprofen per day for pain (4) Chronic kidney disease, stage 3: Qualifiers: Chronic kidney disease stage 3 subtype: unspecified whether 3a or 3b Qualified Code(s): N18.30 - Chronic kidney disease, stage 3 unspecified Code(s): N18.30 - Chronic kidney disease, stage 3 unspecified Status: Acute Assessment and Plan: - Creat is 0.8 on discharge (5) Type 2 diabetes mellitus: Qualifiers: Diabetes mellitus complication status: without complication Diabetes mellitus intermission coordinator insulin use: without detention use Qualified Code(s): E11.9 - Type 2 diabetes mellitus without complications Code(s): E11.9 - Type 2 diabetes mellitus without complications Status: Acute Assessment and Plan: - Continue home medications. DS: Summary Hospital Course Hospital Course: This is a 76-year-old female with hypertension, dyslipidemia, coronary artery disease with history of stent, chronic obstructive pulmonary disease, sleep apnea, bipolar disorder, depression, anxiety, Sjogren syndrome, and inflammatory arthritis who presented to the emergency department for evaluation of dark stools. She estimates having 6 loose, dark stools daily for the last 10 days or so and though she had and establish routine appoint with her primary care provider today she decided to come into the ER as she was worried that she was becoming anemic due to lightheadedness, increasing dyspnea on lesser and lesser exertion, and chills. Indeed her hemoglobin was about 1.5 g lower than what it was just a week or so ago. Her platelet count was also lower. Interestingly her stool was negative for occult blood on rectal exam done in the ER. Patient does describe periumbilical aching which is a chronic ongoing problem for the patient for which she is followed by GI and hepatobiliary at [facility], with history of multiple ERCPs and sphincterotomies. Unfortunately she continues to take between 600 and 800 mg of ibuprofen up to 4 times a day for this abdominal pain and her chronic back pain related to fibromyalgia and arthritis. Time Spent with Patient Time attestation: Total time spent providing and/or coordinating discharge services: Exam Narrative: General: Chronically ill-appearing female sitting up in bed. in no acute distress at this time. HEENT: MMM, sclera are clear. Neck: Supple. No JVD. FROM. Respiratory: Decreased lung sounds with no adventitious sounds. Cardiovascular: Regular rate and rhythm with S1-S2. No m,r,g,h Gastrointestinal: Abdomen is soft and NT, with bowel sounds present in all four quadrants. Skin: Warm and dry. Slightly pale. Extremities: No cyano
[2021-09-21 14:29] LABS: Heparin Induced Platelet Antib Negative (Negative)
== END 2021-09-20 16:10 | disposition home or self-care (01) ==
LOC: ANHED 14:08 → ANH3MEDSUR 15:34
PROVIDERS: Internal Medicine Gastroenterology; Internal Medicine Hematology & Oncology; Nurse Practitioner Adult Health; Physician Assistant; Radiology Diagnostic Radiology; Admitting Provider Internal Medicine; Emergency Provider Emergency Medicine; PCP Internal Medicine; Visit Provider Family Medicine
PROC: 0DJ08ZZ Inspection of Upper Intestinal Tract, Via Natural or Artificial Opening Endoscopic (ICD-10-PCS; CPT 43235; principal; 2021-09-19 15:00)
DX: D64.9 Anemia, unspecified (principal); D69.6 Thrombocytopenia, unspecified; N28.9 Disorder of kidney and ureter, unspecified; R19.5 Other fecal abnormalities; R53.1 Weakness; R06.02 Shortness of breath; J44.9 Chronic obstructive pulmonary disease, unspecified; I25.10 Atherosclerotic heart disease of native coronary artery without angina pectoris; E78.5 Hyperlipidemia, unspecified; F31.9 Bipolar disorder, unspecified; M35.00 Sjogren syndrome, unspecified; I25.2 Old myocardial infarction; E11.9 Type 2 diabetes mellitus without complications; M79.7 Fibromyalgia; F41.8 Other specified anxiety disorders; I13.0 Hypertensive heart and chronic kidney disease with heart failure and stage 1 through stage 4 chronic kidney disease, or unspecified chronic kidney disease; I50.9 Heart failure, unspecified; N18.30 Chronic kidney disease, stage 3 unspecified; H40.9 Unspecified glaucoma; G47.33 Obstructive sleep apnea (adult) (pediatric); K21.9 Gastro-esophageal reflux disease without esophagitis; M81.0 Age-related osteoporosis without current pathological fracture; K58.9 Irritable bowel syndrome, unspecified; Z95.5 Presence of coronary angioplasty implant and graft; Z87.891 Personal history of nicotine dependence; Z90.49 Acquired absence of other specified parts of digestive tract; Z79.51 Long term (current) use of inhaled steroids; Z79.84 Long term (current) use of oral hypoglycemic drugs
CPT/HCPCS: 36415; 38222; 76705; 80053; 82607; 82728; 82746; 82948; 83540; 83550; 83615; 83735; 84443; 85025; 85027; 85055; 85610; 85730; 86022; 86140; 86850; 86900; 86901; 87081; 88184; 88185; 88305; 88311; 88313; 88341; 88342; 88360; 94640; 96361; 96374; 99285; A9270; G0378; J1642; J2270; J2704; J3010; J7040; J7120

== ENCOUNTER 2021-10-07 01:28 | Emergency (ER) | payer MEDICARE, MEDICAID, SELFPAY ==
[2021-10-07] VITALS (29 sets, daily range): BP systolic 61–139; BP diastolic 34–83; PULSE 71–108; RESP 17–29; TEMP 36.4–36.5; O2SAT 89–95
--- NOTE | ~2021-10-07 | CT_ITS ---
EXAMINATION: CT cervical spine w con DATE: 10/07/2021 03:00 INDICATION: Neck pain and spasms after transfusion TECHNIQUE: Computed tomography (CT) of the cervical spine was performed without intravenous contrast. Automated exposure control and iterative reconstruction technique were employed. The dose-length pro duct was 656.81 mGy-cm. COMPARISON: Cervical spine MRI dated 01/05/2020 FINDINGS: Straightening of the normal cervical lordosis. 1-2 mm anterolisthesis C7 on T1 Vertebral body heights are normal. No fracture. Moderate disc height loss at C6-C7 and T2-T3 and mild at C4-C5, C5-C6, C7-T 1, T3-T4 and T5-T6. Severe bilateral uncovertebral osteoarthritis at C6-C7. Mild uncovertebral osteoa rthritis throughout the remainder of the cervical spine. Moderate to severe multilevel cervical facet osteoarthritis, left greater than right. Again noted is results in mild neural foraminal stenosis on the left at C2-C3 through C5-C6 and on the right at C6-C7. No stenosis of the osseous central canal. Cervical soft tissues are unremarkable. Mosaic attenuation in the visualized lungs likely related to atelectasis and expiratory phase of imaging. There is AP flattening of the left and right mainstem b ronchi consistent with bronchomalacia. IMPRESSION: 1. Moderate cervical spondylosis. No acute osseous abnormality. 2. Bronchomalacia. Reviewed, dictated and finalized at location B.
[2021-10-07] MEDS: SODIUM CHLORIDE 0.9% IV 1,000 ML 999 ML IV CONT (01:42)
[2021-10-07 01:44] LABS: Hematocrit 25.8 % (37.0-47.0); Hemoglobin 8.6 g/dL (12.0-15.0); Mean Corpuscular HGB Conc 33.3 g/dl (32-36); Mean Corpuscular Hemoglobin 30.4 pg (26-34); Mean Corpuscular Volume 91.2 fl (80-100); Mean Platelet Volume 10.4 fl (7.4-10.4); Red Blood Count 2.83 M/mm3 (4.2-5.4); Red Cell Distribution Width 17.1 % (11.5-14.5); White Blood Count 28.3 K/mm3 (4.5-10.0)
[2021-10-07 01:55] LABS: Platelet Count Result 18 k/mm3 (150-375)
[2021-10-07 01:57] LABS: Anion Gap 10 mmol/L (8-16); Blood Urea Nitrogen 29 mg/dL (7-17); Calcium 8.4 mg/dL (8.4-10.2); Carbon Dioxide 22 mmol/L (22-30); Chloride 99 mmol/L (98-107); Estimated Glomerular Filt Rate 34; Glucose 127 mg/dL (65-110); Potassium 3.2 mmol/L (3.4-5.0); Sodium 131 mmol/L (137-145)
[2021-10-07 02:08] LABS: Band Neutrophils Percent 1 % (0-6); Eosinophils Absolute Manual 0.84 K/mm3 (0.02-0.5); Eosinophils Percent Manual 3 % (0-4); Lymphocytes Absolute Manual 12.45 K/mm3 (1.1-4.5); Monocytes Absolute Manual 10.75 K/mm3 (0.1-0.90); Monocytes Percent Manual 38 % (3-9); Neutrophils Absolute Manual 4.24 K/mm3 (1.7-7.2); Neutrophils Percent Manual 14 % (46-73); Platelet Estimate Decreased (Adequate); Total Cells Counted 100
[2021-10-07 02:09] LABS: Acanthocytes 2+ (NORMAL); Atypical Lymphocytes Present; Ovalocytes 2+ (NORMAL)
[2021-10-07] MEDS: MORPHINE SULFATE (*CRX) 2 MG/ML INJ IV PUSH (03:39)
[2021-10-07] MEDS: diazePAM INJ (*CRX) 10 MG/2 ML SYRINGE 5 MG IV PUSH (05:02)
[2021-10-07] MEDS: SODIUM CHLORIDE 0.9% IV 500 ML 999 ML IV CONT (05:02)
--- NOTE | 2021-10-07 05:29 | ED.NECK ---
HPI - Neck Pain/Injury General Chief Complaint: Neck Pain/Injury Stated Complaint: Neck pain Time Seen by Provider: 10/07/21 01:28 History of Present Illness HPI Narrative: Patient is a 76-year-old female who presents ER with left-sided neck pain. Ongoing for the last 2 days. Patient has history of myelodysplastic syndrome and recently had a blood transfusion at [facility] [address] Patient [address] Dr. Ramos for her MDS treatment. Patient is not on chemotherapy and is not on steroids. She reports she began having pain after the transfusion. No trauma. Denies numbness or tingling to the upper or lower extremities. She denies fevers or chills or sweats. She reports she has pain when trying to turn her head due to her. Discomfort is on the left side and is pinpoint. Related Data Home Medications Medication Instructions Recorded Confirmed clonazepam 1 mg tablet 1 mg PO BID tablet 04/15/19 09/18/21 omeprazole 20 mg capsule,delayed 20 mg PO BID 04/15/19 09/18/21 release tamsulosin 0.4 mg capsule 0.4 mg PO DAILY 04/15/19 09/18/21 furosemide 40 mg tablet 20 mg PO BID tablet 07/27/19 09/18/21 tobramycin 0.3 %-dexamethasone 0.1 1 drp OPHTHALMIC (EYE) QID 06/05/20 09/18/21 % eye drops,suspension duloxetine 60 mg PO DAILY 01/23/21 09/18/21 aripiprazole 5 mg tablet 5 mg PO DAILY 08/29/21 09/18/21 Allergies Allergy/AdvReac Type Severity Reaction Status Date / Time ibandronate sodium Allergy Mild Unknown Verified 10/07/21 01:30 prochlorperazine Allergy Unknown tardive Verified 10/07/21 01:30 dyskinesia alendronate sodium AdvReac Mild GERDS Verified 10/07/21 01:30 doxazosin AdvReac Mild NAUSEA AND Verified 10/07/21 01:30 VOMITING erythromycin base AdvReac Mild NAUSEA AND Verified 10/07/21 01:30 VOMITING doxycycline AdvReac Unknown Nausea and Verified 10/07/21 01:30 Vomiting Sulfa (Sulfonamide AdvReac Unknown Nausea and Verified 10/07/21 01:30 Antibiotics) Vomiting gabapentin AdvReac Nausea and Verified 10/07/21 01:30 Vomiting Vicryl Sutures Allergy Mild Rash Uncoded 08/29/21 10:31 Review of Systems Review of Systems: All systems reviewed & are unremarkable except as noted in HPI and below Constitutional: Constitutional: Denies chills, Denies fever(s) and Denies weakness ENT: Denies nasal congestion and Denies sore throat Cardiovascular: Cardiovascular: Denies chest pain, Denies rapid heart rate and Denies radiating jaw, neck or arm pain Respiratory: Respiratory: Denies cough and Denies dyspnea [facility] Past Medical History Medical History Allergies Anemia Anxiety Asthma Bipolar disorder Chronic kidney disease, stage 3 Chronic obstructive pulmonary disease Congestive heart failure Coronary artery disease Depression Fibromyalgia Glaucoma Hypertension Inflammatory arthritis Irritable bowel syndrome Migraine Myocardial infarction Obstructive sleep apnea Osteoporosis Sjogrens syndrome Type 2 diabetes mellitus Hemoglobin A1c was 5.6% in August 2021. Surgical History Surgical History Ganglion, right hand (01/28/21) Extensors tendon excision. History of arthroplasty of left knee History of bilateral cataract extraction History of bladder surgery History of carpal tunnel surgery History of cholecystectomy History of colon resection History of coronary artery stent placement History of hernia repair History of hysterectomy History of open reduction and internal fixation (ORIF) procedure Right ankle fracture. Family History Family History Sibling Family history of thyroid disease Family history of obesity Family history of osteoporosis Family history of mental disorder Depression Family history of glaucoma Patient's brother is in good health Family history of arthritis Family history of sleep a
--- NOTE | 2021-10-07 06:31 | PC.NURSE ---
Hardeep from lab states they are waiting for the correct platelets to arrive and they will call when the receive them.
[2021-10-07] MEDS: MORPHINE SULFATE (*CRX) 4 MG/ML INJ IV PUSH (06:40)
--- NOTE | 2021-10-07 07:01 | PC.NURSE ---
[facility] here to transport patient to [facility] notified of platelets not received yet, [facility] to still transfer patient without platelets given.
== END 2021-10-07 07:08 | disposition short-term general hospital (02) ==
PROVIDERS: Emergency Provider Emergency Medicine; PCP Internal Medicine
DX: M54.2 Cervicalgia (principal); N17.9 Acute kidney failure, unspecified; D69.6 Thrombocytopenia, unspecified; I13.0 Hypertensive heart and chronic kidney disease with heart failure and stage 1 through stage 4 chronic kidney disease, or unspecified chronic kidney disease; N18.30 Chronic kidney disease, stage 3 unspecified; E11.22 Type 2 diabetes mellitus with diabetic chronic kidney disease; I50.9 Heart failure, unspecified; D46.9 Myelodysplastic syndrome, unspecified; J44.9 Chronic obstructive pulmonary disease, unspecified; I25.2 Old myocardial infarction; H40.9 Unspecified glaucoma; K58.9 Irritable bowel syndrome, unspecified; G47.33 Obstructive sleep apnea (adult) (pediatric); Q87.19 Other congenital malformation syndromes predominantly associated with short stature; M19.90 Unspecified osteoarthritis, unspecified site; M79.7 Fibromyalgia; Z87.891 Personal history of nicotine dependence; Z96.652 Presence of left artificial knee joint; Z98.42 Cataract extraction status, left eye; Z98.41 Cataract extraction status, right eye; Z90.49 Acquired absence of other specified parts of digestive tract; Z95.5 Presence of coronary angioplasty implant and graft; M47.812 Spondylosis without myelopathy or radiculopathy, cervical region; J98.09 Other diseases of bronchus, not elsewhere classified; Z79.82 Long term (current) use of aspirin; Z79.84 Long term (current) use of oral hypoglycemic drugs
CPT/HCPCS: 36415; 72126; 80048; 85025; 86850; 86900; 86901; 87040; 96361; 96365; 96375; 96376; 99285; J0696; J2270; J3360; J7030; J7040; Q9967